=== PATIENT | female | born 1960 | race Caucasian/White ===

== ENCOUNTER 2021-09-07 13:57 | Emergency (ER) | payer OTHER ==
[2021-09-07] MEDS ORDERED: Ketorolac 60 MG/2 ML SDV IM ONE (14:29)
[2021-09-07] MEDS ORDERED: Ketorolac 60 MG/2 ML SDV ONE (14:37)
== END 2021-09-07 15:38 | disposition home or self-care (01) ==
LOC: LB.ED 13:57
DX: M54.6 Pain in thoracic spine (principal); I10 Essential (primary) hypertension; Z88.2 Allergy status to sulfonamides
CPT/HCPCS: 71101; 96372; 99283; J1885

== ENCOUNTER 2021-12-07 11:10 | Emergency (ER) | payer OTHER ==
[2021-12-07] MEDS ORDERED: Levothyroxine 25 MCG Tab ONE (13:30)
== END 2021-12-07 13:35 | disposition home or self-care (01) ==
LOC: LB.ED 11:10
DX: F03.90 Unspecified dementia, unspecified severity, without behavioral disturbance, psychotic disturbance, mood disturbance, and anxiety (principal); E03.9 Hypothyroidism, unspecified; R74.8 Abnormal levels of other serum enzymes; D72.819 Decreased white blood cell count, unspecified; Z79.899 Other long term (current) drug therapy
CPT/HCPCS: 36415; 80053; 84443; 85025; 99284; A9270

== ENCOUNTER 2022-01-04 23:50 | Emergency (ER) | payer OTHER | END 2022-01-05 02:11 | disposition home or self-care (01) | LOC: LB.ED 23:50 | DX: R41.0 Disorientation, unspecified (principal); T50.905A Adverse effect of unspecified drugs, medicaments and biological substances, initial encounter; E78.00 Pure hypercholesterolemia, unspecified; I10 Essential (primary) hypertension; Z88.2 Allergy status to sulfonamides; Z79.899 Other long term (current) drug therapy | CPT/HCPCS: 36415; 70450; 71250; 72125; 74176; 80048; 80307; 81001; 82947; 83605; 85025; 93005; 99283; 99285-25; A0425; A0429 ==

== ENCOUNTER 2022-02-18 22:23 | Emergency (ER) | payer OTHER ==
[2022-02-18] MEDS ORDERED: traMADol 50 MG Tab ONE (23:30)
[2022-02-18] MEDS: Ketorolac 60 MG/2 ML SDV IM ONE (23:40)
== END 2022-02-18 23:52 | disposition home or self-care (01) ==
LOC: LB.ED 22:23
DX: M79.10 Myalgia, unspecified site (principal); I10 Essential (primary) hypertension; Z90.49 Acquired absence of other specified parts of digestive tract; Z90.710 Acquired absence of both cervix and uterus
CPT/HCPCS: 96372; 99283; A9270; J1885; 99282

== ENCOUNTER 2022-03-22 08:15 | Emergency (ER) | payer OTHER ==
[2022-03-22] MEDS: Sodium Chloride 0.9% 10 ML Syringe FLUSH PRN (09:08)
[2022-03-22] MEDS: Morphine 2 MG/ML SYRINGE IVPUSH ONE (09:08)
[2022-03-22] MEDS ORDERED: Morphine 2 MG/ML SYRINGE ONE (09:17)
[2022-03-22 09:31] LABS: ESTIMATED GFR 84 mL/min (>60)
[2022-03-22] MEDS: Gabapentin 300 MG Cap PO ONE (10:45)
[2022-03-22] MEDS: Orphenadrine 60 MG/2 ML Inj IM ONE (10:45)
[2022-03-22] MEDS: Ketamine 200 MG/20 ML MDV ONE (10:55)
[2022-03-22] MEDS: Lidocaine 5% 700 MG Patch TRDERM ONE (11:50)
[2022-03-22] MEDS ORDERED: Acetaminophen/oxyCODONE 325-5 MG Tab ONE (12:00)
[2022-03-22] MEDS ORDERED: Cyclobenzaprine 10 MG Tab ONE (12:00)
== END 2022-03-22 12:25 | disposition home or self-care (01) ==
LOC: LB.ED 08:15
DX: M54.50 Low back pain, unspecified (principal); I10 Essential (primary) hypertension; E66.9 Obesity, unspecified; Z68.30 Body mass index [BMI] 30.0-30.9, adult; Z88.2 Allergy status to sulfonamides; Z79.899 Other long term (current) drug therapy; Z90.49 Acquired absence of other specified parts of digestive tract
CPT/HCPCS: 36415; 73700; 80048; 96372; 96374; 99282; 99284; A0425; A0429; A9270; J2270; J2360; J3490

== ENCOUNTER 2023-12-31 18:41 | Emergency (ER) | payer OTHER ==
[2023-12-31] MEDS ORDERED: Naloxone 2 MG/2 ML Syringe IVPUSH PRN (19:26)
[2023-12-31] MEDS: Orphenadrine 60 MG/2 ML Inj IV ONE (19:30)
[2023-12-31] MEDS: HYDROmorphone 2 MG/ML Syringe IVPUSH ONE (19:34)
[2023-12-31] MEDS ORDERED: Acetaminophen/HYDROcodone 325-5 MG Tab ONE (20:00)
[2023-12-31] MEDS ORDERED: Methocarbamol 500 MG Tab ONE (20:00)
== END 2023-12-31 20:25 | disposition home or self-care (01) ==
LOC: LB.ED 18:41
DX: R09.1 Pleurisy (principal); Z79.01 Long term (current) use of anticoagulants; E78.00 Pure hypercholesterolemia, unspecified; I10 Essential (primary) hypertension; E11.9 Type 2 diabetes mellitus without complications; E03.9 Hypothyroidism, unspecified; E66.9 Obesity, unspecified; Z88.2 Allergy status to sulfonamides; Z88.8 Allergy status to other drugs, medicaments and biological substances; Z79.899 Other long term (current) drug therapy; Z90.49 Acquired absence of other specified parts of digestive tract; Z68.44 Body mass index [BMI] 60.0-69.9, adult
CPT/HCPCS: 71045; 96374; 96375; 99283-25; A9270-GY; J1170; J2360

== ENCOUNTER 2024-01-03 10:08 | Inpatient (IN) | payer OTHER ==
[2024-01-03 11:02] LABS: EOSINOPHILS ABSOLUTE AUTO 0.02 K/uL (0.04-0.40); EOSINOPHILS PERCENT AUTO 0.2 % (1.0-5.0); HEMOGLOBIN 11.7 g/dL (11.5-16.5); LYMPHOCYTES PERCENT AUTO 2.9 % (20.0-40.0); MEAN CORPUSCULAR HGB CONC 34.4 g/dL (31.0-35.0); MEAN CORPUSCULAR VOLUME 93 fL (76-96); MEAN PLATELET VOLUME 11.4 fL (6.0-10.0); MONOCYTES ABSOLUTE AUTO 0.79 K/uL (0.20-0.80); MONOCYTES PERCENT AUTO 7.6 % (3.0-10.0); NEUTROPHILS ABSOLUTE AUTO 9.33 K/uL (2.00-7.50); NEUTROPHILS PERCENT AUTO 89.3 % (45.0-70.0); PLATELET COUNT,PLT 53 K/uL (150-500); RED BLOOD CELL COUNT 3.66 M/uL (3.80-5.80); RED CELL DISTRIBUTION WIDTH 15.3 % (11.0-16.0); WHITE BLOOD CELL COUNT,WBC 10.4 K/uL (4.0-11.0)
[2024-01-03] MEDS: Sodium Chloride 0.9% 1,000 ML IV SCH ×2 (11:02→14:50)
[2024-01-03 11:19] LABS: A/G RATIO 0.8 (0.8-2.0); ALBUMIN 2.4 g/dL (3.4-5.0); ANION GAP 15.3 mmol/L (5.0-15.0); BILIRUBIN TOTAL 1.4 mg/dL (0.0-1.0); BUN/CREATININE RATIO 16.9 (6-25); CALCIUM 7.9 mg/dL (8.5-10.1); CARBON DIOXIDE,CO2 21.1 mmol/L (21.0-32.0); CREATININE 2.84 mg/dL (0.55-1.02); EST CRCL DRUG DOSING (CG) 17.21 mL/min; POTASSIUM,K 4.4 mmol/L (3.5-5.1); PROTEIN TOTAL,TP 5.3 g/dL (6.4-8.2)
[2024-01-03] MEDS: HYDROmorphone 2 MG/ML Syringe IVPUSH ONE (11:29)
[2024-01-03 12:00] LABS: INR 1.8 (1.0-3.5)
[2024-01-03 12:02] LABS: PROTHROMBIN TIME 17.9 sec (9.0-11.5)
[2024-01-03] MEDS: HYDROmorphone 2 MG/ML Syringe ONE (12:17)
[2024-01-03] MEDS: HYDROmorphone 2 MG/ML Syringe IVPUSH PRN (12:20)
[2024-01-03] MEDS ORDERED: LORazepam 1 MG Tab PO PRN (12:56)
[2024-01-03] MEDS ORDERED: Pantoprazole 40 MG Tab.CR PO PRN (12:56)
[2024-01-03] MEDS: Lactulose Soln 10 GM/15 ML 15 ML UD Cup PO SCH (16:51)
[2024-01-03] MEDS: Apixaban 5 MG Tab PO SCH (19:59)
[2024-01-03] MEDS: ROPINIROLE 1 MG PO PRN (20:40)
[2024-01-03] MEDS: Carvedilol 6.25 MG Tab PO SCH (20:42)
[2024-01-03] MEDS: Non-Formulary Medication 1 Each (Zinc Sulfate [Zinc] 50 MG Tablet) PO SCH (21:07)
[2024-01-03] MEDS ORDERED: rOPINIRole 1 MG Tab PO PRN (21:13)
[2024-01-04] MEDS: HYDROmorphone 2 MG/ML Syringe IVPUSH PRN (07:35)
[2024-01-04] MEDS: Zinc (Zinc Gluconate) 50 MG Tab PO SCH (07:45)
[2024-01-04] MEDS: Multivitamin Tab PO SCH (07:46)
[2024-01-04] MEDS: Spironolactone 25 MG Tab PO SCH (07:46)
[2024-01-04] MEDS: Citalopram 10 MG Tab PO SCH (07:47)
[2024-01-04] MEDS: Levothyroxine 88 MCG Tab PO SCH (07:54)
[2024-01-04] MEDS: Levothyroxine 88 MCG Tab ONE (08:09)
[2024-01-04 09:19] LABS: HEMATOCRIT 32.9 % (37.0-47.0); HEMOGLOBIN 11.4 g/dL (11.5-16.5); MEAN CORPUSCULAR HEMOGLOBIN 31.9 pg (27.0-32.0); MEAN CORPUSCULAR HGB CONC 34.7 g/dL (31.0-35.0); MEAN PLATELET VOLUME 11.6 fL (6.0-10.0); RED BLOOD CELL COUNT 3.57 M/uL (3.80-5.80); RED CELL DISTRIBUTION WIDTH 15.6 % (11.0-16.0); WHITE BLOOD CELL COUNT,WBC 13.2 K/uL (4.0-11.0)
[2024-01-04 09:34] LABS: A/G RATIO 0.8 (0.8-2.0); ALBUMIN 2.2 g/dL (3.4-5.0); BILIRUBIN TOTAL 1.6 mg/dL (0.0-1.0); BUN/CREATININE RATIO 20.1 (6-25); CALCIUM 7.7 mg/dL (8.5-10.1); CARBON DIOXIDE,CO2 19.5 mmol/L (21.0-32.0); CREATININE 2.64 mg/dL (0.55-1.02); EST CRCL DRUG DOSING (CG) 18.51 mL/min; POTASSIUM,K 4.5 mmol/L (3.5-5.1); PROTEIN TOTAL,TP 4.9 g/dL (6.4-8.2)
[2024-01-04] MEDS: oxyCODONE 5 MG Tab PO ONE ×2 (11:31→15:08)
[2024-01-04] MEDS: Albumin 25% 200 ML IV ONE (12:43)
[2024-01-04] MEDS: Albumin 25% 50 ML IV SCH (12:47)
[2024-01-04] MEDS: Piperacillin/Tazobactam 4.5 GM in Sodium Chloride 0.9% 100 ML IV ONE (14:06)
[2024-01-04] MEDS: cefTRIAXone 2 GM Vial IVPUSH SCH (14:52)
[2024-01-04] MEDS: oxyCODONE 5 MG Tab ONE (15:13)
== END 2024-01-04 16:19 | DRG 682 ==
LOC: LB.ED 10:08 → UNDOADMIN 12:38 → LB.MS 12:38 → UNDODISIN 01-04 16:19
PROVIDERS: ADMIT Surgery; ATTEND Surgery
DX: N17.9 Acute kidney failure, unspecified (principal); J18.9 Pneumonia, unspecified organism; K76.7 Hepatorenal syndrome; D84.9 Immunodeficiency, unspecified; Z68.42 Body mass index [BMI] 45.0-49.9, adult; J90 Pleural effusion, not elsewhere classified; K72.10 Chronic hepatic failure without coma; H91.90 Unspecified hearing loss, unspecified ear; H54.7 Unspecified visual loss; E78.00 Pure hypercholesterolemia, unspecified; K52.9 Noninfective gastroenteritis and colitis, unspecified; I10 Essential (primary) hypertension; M19.90 Unspecified osteoarthritis, unspecified site; M54.9 Dorsalgia, unspecified; G89.29 Other chronic pain; G43.909 Migraine, unspecified, not intractable, without status migrainosus; F41.9 Anxiety disorder, unspecified; F32.A Depression, unspecified; E03.9 Hypothyroidism, unspecified; E66.9 Obesity, unspecified; E86.0 Dehydration; Z88.2 Allergy status to sulfonamides; Z88.8 Allergy status to other drugs, medicaments and biological substances; Z79.01 Long term (current) use of anticoagulants; Z79.899 Other long term (current) drug therapy; Z86.711 Personal history of pulmonary embolism; Z98.84 Bariatric surgery status; Z90.710 Acquired absence of both cervix and uterus; Z87.81 Personal history of (healed) traumatic fracture; Z90.49 Acquired absence of other specified parts of digestive tract
CPT/HCPCS: 36415; 71250; 74176; 80053; 82140; 83605; 84484; 85025; 85027; 85610; 93005; 93010; 96361; 96374; 96376; 99223; 99239; 99285-25; A9270-GY; J0696; J1170; J2543; J3490; J7030; P9047

== ENCOUNTER 2024-02-13 17:32 | Emergency (ER) | payer OTHER ==
[2024-02-13 18:14] LABS: BASOPHILS ABSOLUTE AUTO 0.02 K/uL (0.02-0.10); BASOPHILS PERCENT AUTO 0.7 % (0.0-0.5); EOSINOPHILS ABSOLUTE AUTO 0.13 K/uL (0.04-0.40); EOSINOPHILS PERCENT AUTO 4.5 % (1.0-5.0); HEMATOCRIT 29.3 % (37.0-47.0); HEMOGLOBIN 9.4 g/dL (11.5-16.5); LYMPHOCYTES ABSOLUTE AUTO 0.87 K/uL (1.50-4.00); LYMPHOCYTES PERCENT AUTO 29.8 % (20.0-40.0); MEAN CORPUSCULAR HEMOGLOBIN 32.5 pg (27.0-32.0); MEAN CORPUSCULAR HGB CONC 32.1 g/dL (31.0-35.0); MEAN CORPUSCULAR VOLUME 101 fL (76-96); MEAN PLATELET VOLUME 9.8 fL (6.0-10.0); MONOCYTES ABSOLUTE AUTO 0.45 K/uL (0.20-0.80); MONOCYTES PERCENT AUTO 15.4 % (3.0-10.0); NEUTROPHILS ABSOLUTE AUTO 1.45 K/uL (2.00-7.50); NEUTROPHILS PERCENT AUTO 49.6 % (45.0-70.0); PLATELET COUNT,PLT 110 K/uL (150-500); RED BLOOD CELL COUNT 2.89 M/uL (3.80-5.80); RED CELL DISTRIBUTION WIDTH 16.6 % (11.0-16.0); WHITE BLOOD CELL COUNT,WBC 2.9 K/uL (4.0-11.0)
[2024-02-13 18:31] LABS: A/G RATIO 0.7 (0.8-2.0); ALBUMIN 2.1 g/dL (3.4-5.0); ANION GAP 8.4 mmol/L (5.0-15.0); BILIRUBIN TOTAL 1.9 mg/dL (0.0-1.0); BUN/CREATININE RATIO 7.5 (6-25); CARBON DIOXIDE,CO2 29.4 mmol/L (21.0-32.0); CREATININE 0.93 mg/dL (0.55-1.02); EST CRCL DRUG DOSING (CG) 52.55 mL/min; POTASSIUM,K 3.8 mmol/L (3.5-5.1); PROTEIN TOTAL,TP 5.2 g/dL (6.4-8.2)
[2024-02-13 19:24] LABS: INR 1.5 (1.0-3.5); PTT,PARTIAL THROMBOPLSTIN TIME 39.4 SECONDS (24.4-33.2)
[2024-02-13 19:27] LABS: PROTHROMBIN TIME 15.7 sec (9.0-11.5)
== END 2024-02-13 19:36 | disposition home or self-care (01) ==
LOC: LB.ED 17:32
DX: H11.32 Conjunctival hemorrhage, left eye (principal); K72.10 Chronic hepatic failure without coma; E11.9 Type 2 diabetes mellitus without complications; E03.9 Hypothyroidism, unspecified; E66.9 Obesity, unspecified; I10 Essential (primary) hypertension; Z90.710 Acquired absence of both cervix and uterus; Z79.899 Other long term (current) drug therapy; Z79.01 Long term (current) use of anticoagulants; Z79.84 Long term (current) use of oral hypoglycemic drugs; Z68.41 Body mass index [BMI] 40.0-44.9, adult
CPT/HCPCS: 36415; 80053; 85025; 85610; 85730; 99283; 99284

== ENCOUNTER 2024-03-02 15:36 | Observation (INO) | payer SELFPAY ==
[2024-03-02] MEDS: Sodium Chloride 0.9% 1,000 ML IV ONE ×2 (16:03→17:06)
[2024-03-02 16:21] LABS: BASOPHILS ABSOLUTE AUTO 0.04 K/uL (0.02-0.10); BASOPHILS PERCENT AUTO 0.8 % (0.0-0.5); EOSINOPHILS ABSOLUTE AUTO 0.11 K/uL (0.04-0.40); EOSINOPHILS PERCENT AUTO 2.2 % (1.0-5.0); HEMATOCRIT 35.2 % (37.0-47.0); HEMOGLOBIN 11.8 g/dL (11.5-16.5); LYMPHOCYTES ABSOLUTE AUTO 1.07 K/uL (1.50-4.00); LYMPHOCYTES PERCENT AUTO 21.7 % (20.0-40.0); MEAN CORPUSCULAR HEMOGLOBIN 31.8 pg (27.0-32.0); MEAN CORPUSCULAR HGB CONC 33.5 g/dL (31.0-35.0); MEAN CORPUSCULAR VOLUME 95 fL (76-96); MEAN PLATELET VOLUME 10.2 fL (6.0-10.0); MONOCYTES PERCENT AUTO 18.3 % (3.0-10.0); PLATELET COUNT,PLT 100 K/uL (150-500); RED BLOOD CELL COUNT 3.71 M/uL (3.80-5.80); WHITE BLOOD CELL COUNT,WBC 4.9 K/uL (4.0-11.0)
[2024-03-02] MEDS: Lactulose Soln 10 GM/15 ML 15 ML UD Cup PO ONE (17:11)
[2024-03-02] MEDS ORDERED: Non-Formulary Medication 1 Each (Pantoprazole Sodium [Protonix] 40 MG Tablet.Dr) PO PRN (17:44)
[2024-03-02] MEDS ORDERED: ROPINIROLE 1 MG PO PRN (17:44)
[2024-03-02] MEDS ORDERED: Non-Formulary Medication 1 Each (Lorazepam [Ativan] 1 MG Tablet) PO PRN (17:44)
[2024-03-02] MEDS ORDERED: Non-Formulary Medication 1 Each (Semaglutide [Ozempic] 1 MG/0.75 ML Pen.Injctr) SUBCUT SCH (17:45)
[2024-03-02] MEDS ORDERED: Pantoprazole 40 MG Tab.CR PO PRN (19:31)
[2024-03-02] MEDS ORDERED: LORazepam 1 MG Tab PO PRN (19:57)
[2024-03-02] MEDS ORDERED: LACTULOSE 10 GM/15 ML PO SCH (20:00)
[2024-03-02] MEDS ORDERED: Rifaximin 550 MG Tab PO SCH (20:00)
[2024-03-02] MEDS ORDERED: Lactulose Soln 10 GM/15 ML 15 ML UD Cup PO SCH (20:00)
[2024-03-02] MEDS ORDERED: Non-Formulary Medication 1 Each (Rifaximin [Xifaxan] 550 MG Tablet) PO SCH (20:00)
[2024-03-02] MEDS: RIFAXIMIN 550 MG PO SCH (20:37)
[2024-03-02] MEDS: Carvedilol 6.25 MG Tab PO SCH (20:46)
[2024-03-02] MEDS: Citalopram 10 MG Tab PO SCH (20:46)
[2024-03-02] MEDS: LACTULOSE PO SCH (20:48)
[2024-03-02] MEDS: Zinc (Zinc Gluconate) 50 MG Tab PO SCH (20:49)
[2024-03-02] MEDS: Sodium Chloride 0.9% 1,000 ML IV SCH (21:00)
[2024-03-02] MEDS: rOPINIRole 1 MG Tab PO PRN (22:56)
[2024-03-03] MEDS ORDERED: Levothyroxine 88 MCG Tab PO SCH (07:00)
[2024-03-03] MEDS: Levothyroxine 88 MCG Tab **OWN MED PO SCH (07:02)
[2024-03-03] MEDS: SPIRONOLACTONE 100 MG PO SCH (07:02)
[2024-03-03] MEDS: Multivitamin Tab PO SCH (07:02)
[2024-03-03] MEDS: Furosemide 40 MG Tab **OWN MED PO SCH (07:02)
[2024-03-03] MEDS ORDERED: Citalopram 10 MG Tab PO SCH (08:00)
[2024-03-03 08:44] LABS: A/G RATIO 0.5 (0.8-2.0); ALBUMIN 1.6 g/dL (3.4-5.0); ANION GAP 10.6 mmol/L (5.0-15.0); BILIRUBIN TOTAL 1.5 mg/dL (0.0-1.0); CARBON DIOXIDE,CO2 25.7 mmol/L (21.0-32.0); CREATININE 0.86 mg/dL (0.55-1.02); EST CRCL DRUG DOSING (CG) 56.83 mL/min; POTASSIUM,K 4.3 mmol/L (3.5-5.1); PROTEIN TOTAL,TP 4.6 g/dL (6.4-8.2)
[2024-03-03 08:49] LABS: BASOPHILS ABSOLUTE AUTO 0.02 K/uL (0.02-0.10); BASOPHILS PERCENT AUTO 0.6 % (0.0-0.5); EOSINOPHILS ABSOLUTE AUTO 0.12 K/uL (0.04-0.40); EOSINOPHILS PERCENT AUTO 3.9 % (1.0-5.0); HEMATOCRIT 31.5 % (37.0-47.0); HEMOGLOBIN 10.4 g/dL (11.5-16.5); LYMPHOCYTES ABSOLUTE AUTO 1.03 K/uL (1.50-4.00); LYMPHOCYTES PERCENT AUTO 33.1 % (20.0-40.0); MEAN CORPUSCULAR HEMOGLOBIN 32.1 pg (27.0-32.0); MEAN CORPUSCULAR VOLUME 97 fL (76-96); MEAN PLATELET VOLUME 10.2 fL (6.0-10.0); MONOCYTES ABSOLUTE AUTO 0.46 K/uL (0.20-0.80); MONOCYTES PERCENT AUTO 14.8 % (3.0-10.0); NEUTROPHILS ABSOLUTE AUTO 1.48 K/uL (2.00-7.50); NEUTROPHILS PERCENT AUTO 47.6 % (45.0-70.0); RED BLOOD CELL COUNT 3.24 M/uL (3.80-5.80); RED CELL DISTRIBUTION WIDTH 14.1 % (11.0-16.0); WHITE BLOOD CELL COUNT,WBC 3.1 K/uL (4.0-11.0)
[2024-03-03 08:57] LABS: PLATELET COUNT,PLT 84 K/uL (150-500)
[2024-03-03 09:30] LABS: CALCIUM 7.5 mg/dL (8.5-10.1)
== END 2024-03-03 10:21 | disposition home or self-care (01) ==
LOC: LB.ED 15:36 → LB.MS 17:40
PROVIDERS: ADMIT Physician Assistant; ATTEND Physician Assistant
DX: E86.0 Dehydration (principal); R53.1 Weakness; R42 Dizziness and giddiness; R65.10 Systemic inflammatory response syndrome (SIRS) of non-infectious origin without acute organ dysfunction; E72.20 Disorder of urea cycle metabolism, unspecified; E78.00 Pure hypercholesterolemia, unspecified; I10 Essential (primary) hypertension; E11.9 Type 2 diabetes mellitus without complications; E03.9 Hypothyroidism, unspecified; E66.9 Obesity, unspecified; D64.9 Anemia, unspecified; Z88.8 Allergy status to other drugs, medicaments and biological substances; Z88.2 Allergy status to sulfonamides; Z79.899 Other long term (current) drug therapy; Z79.890 Hormone replacement therapy
CPT/HCPCS: 36415; 80053; 82140; 83605; 85025; 96360; 96361; 99222; 99238; 99285-25; A9270-GY; G0378; J7030

== ENCOUNTER 2024-03-26 12:47 | Emergency (ER) | payer MEDICAID, OTHER ==
[2024-03-26 13:17] LABS: BASOPHILS ABSOLUTE AUTO 0.04 K/uL (0.02-0.10); EOSINOPHILS ABSOLUTE AUTO 0.24 K/uL (0.04-0.40); EOSINOPHILS PERCENT AUTO 5.8 % (1.0-5.0); HEMATOCRIT 33.8 % (37.0-47.0); HEMOGLOBIN 11.3 g/dL (11.5-16.5); LYMPHOCYTES ABSOLUTE AUTO 1.31 K/uL (1.50-4.00); LYMPHOCYTES PERCENT AUTO 31.9 % (20.0-40.0); MEAN CORPUSCULAR HGB CONC 33.4 g/dL (31.0-35.0); MEAN CORPUSCULAR VOLUME 93 fL (76-96); MEAN PLATELET VOLUME 9.8 fL (6.0-10.0); MONOCYTES ABSOLUTE AUTO 0.54 K/uL (0.20-0.80); MONOCYTES PERCENT AUTO 13.1 % (3.0-10.0); NEUTROPHILS ABSOLUTE AUTO 1.98 K/uL (2.00-7.50); NEUTROPHILS PERCENT AUTO 48.2 % (45.0-70.0); PLATELET COUNT,PLT 137 K/uL (150-500); RED BLOOD CELL COUNT 3.64 M/uL (3.80-5.80); RED CELL DISTRIBUTION WIDTH 15.2 % (11.0-16.0); WHITE BLOOD CELL COUNT,WBC 4.1 K/uL (4.0-11.0)
[2024-03-26 13:33] LABS: ANION GAP 8.4 mmol/L (5.0-15.0); BUN/CREATININE RATIO 5.4 (6-25); CALCIUM 7.6 mg/dL (8.5-10.1); CARBON DIOXIDE,CO2 25.6 mmol/L (21.0-32.0); CREATININE 0.92 mg/dL (0.55-1.02); EST CRCL DRUG DOSING (CG) 53.12 mL/min
[2024-03-26] MEDS ORDERED: Sodium Chloride 0.9% 10 ML Syringe FLUSH PRN (14:09)
[2024-03-26 14:12] LABS: LACTIC ACID 2.4 mmol/L (0.4-2.0)
[2024-03-26] MEDS: Iopamidol 755 Mg/ML 100 ML Bottle IV SCH (14:56)
[2024-03-26] MEDS: Sodium Chloride 0.9% 50 ML SDV FLUSH ONE (14:56)
[2024-03-26 17:13] LABS: INR 1.3 (1.0-3.5)
[2024-03-26 17:16] LABS: PROTHROMBIN TIME 13.8 sec (9.0-11.5)
[2024-03-26 17:18] LABS: ALBUMIN 1.8 g/dL (3.4-5.0); BILIRUBIN DIRECT 0.6 mg/dL (0.0-0.3); BILIRUBIN INDIRECT 1.4 mg/dL (<= 0.7); PROTEIN TOTAL,TP 5.8 g/dL (6.4-8.2)
[2024-03-26 17:20] LABS: A/G RATIO 0.5 (0.8-2.0)
[2024-03-26] MEDS ORDERED: oxyCODONE 5 MG Tab ONE (18:00)
[2024-03-26] MEDS ORDERED: Ondansetron 4 MG Tab.DIS ONE (18:00)
[2024-03-29] MEDS: oxyCODONE 5 MG Tab ONE (11:07)
== END 2024-03-26 19:00 | disposition home or self-care (01) ==
LOC: LB.ED 12:47
DX: J90 Pleural effusion, not elsewhere classified (principal); I10 Essential (primary) hypertension; E11.9 Type 2 diabetes mellitus without complications; E66.9 Obesity, unspecified; E03.9 Hypothyroidism, unspecified; Z87.891 Personal history of nicotine dependence; Z90.49 Acquired absence of other specified parts of digestive tract; Z90.710 Acquired absence of both cervix and uterus; Z79.890 Hormone replacement therapy; Z79.899 Other long term (current) drug therapy; Z88.2 Allergy status to sulfonamides; Z88.5 Allergy status to narcotic agent; Z68.41 Body mass index [BMI] 40.0-44.9, adult
CPT/HCPCS: 32555; 36415; 71046; 71275; 80048; 80076; 83605; 85025; 85379; 85610; 87040; 87070; 87205; 99284; 99285; A9270; J3490; Q0162; Q9967

== ENCOUNTER 2024-04-07 11:47 | Emergency (ER) | payer OTHER ==
[2024-04-07 13:00] LABS: BASOPHILS ABSOLUTE AUTO 0.04 K/uL (0.02-0.10); BASOPHILS PERCENT AUTO 1.2 % (0.0-0.5); EOSINOPHILS ABSOLUTE AUTO 0.21 K/uL (0.04-0.40); EOSINOPHILS PERCENT AUTO 6.1 % (1.0-5.0); HEMATOCRIT 34.7 % (37.0-47.0); HEMOGLOBIN 11.8 g/dL (11.5-16.5); LYMPHOCYTES ABSOLUTE AUTO 1.05 K/uL (1.50-4.00); LYMPHOCYTES PERCENT AUTO 30.7 % (20.0-40.0); MEAN CORPUSCULAR HEMOGLOBIN 30.6 pg (27.0-32.0); MEAN CORPUSCULAR VOLUME 90 fL (76-96); MONOCYTES ABSOLUTE AUTO 0.39 K/uL (0.20-0.80); MONOCYTES PERCENT AUTO 11.4 % (3.0-10.0); NEUTROPHILS ABSOLUTE AUTO 1.73 K/uL (2.00-7.50); NEUTROPHILS PERCENT AUTO 50.6 % (45.0-70.0); PLATELET COUNT,PLT 126 K/uL (150-500); RED BLOOD CELL COUNT 3.85 M/uL (3.80-5.80); RED CELL DISTRIBUTION WIDTH 15.4 % (11.0-16.0); WHITE BLOOD CELL COUNT,WBC 3.4 K/uL (4.0-11.0)
[2024-04-07 13:22] LABS: A/G RATIO 0.5 (0.8-2.0); ALBUMIN 1.9 g/dL (3.4-5.0); BILIRUBIN TOTAL 1.8 mg/dL (0.0-1.0); BUN/CREATININE RATIO 5.9 (6-25); CALCIUM 8.1 mg/dL (8.5-10.1); CARBON DIOXIDE,CO2 23.8 mmol/L (21.0-32.0); CREATININE 1.01 mg/dL (0.55-1.02); EST CRCL DRUG DOSING (CG) 48.39 mL/min; POTASSIUM,K 3.8 mmol/L (3.5-5.1); PROTEIN TOTAL,TP 5.6 g/dL (6.4-8.2)
[2024-04-07 13:39] LABS: INFLUENZA A NAA NEGATIVE (NEGATIVE); INFLUENZA B NAA NEGATIVE (NEGATIVE); RESPIRATORY SYNCYTIAL VIR NAA NEGATIVE (NEGATIVE)
[2024-04-07 13:42] LABS: CORONAVIRUS COVID-19 NAA NEGATIVE (NEGATIVE)
[2024-04-07] MEDS: Lactated Ringers 1,000 ML IV SCH (14:16)
[2024-04-07] MEDS: Sodium Chloride 0.9% 50 ML SDV FLUSH ONE (14:44)
[2024-04-07] MEDS: Iopamidol 755 Mg/ML 100 ML Bottle IV SCH (14:44)
[2024-04-07] MEDS ORDERED: Ondansetron 4 MG Tab.DIS ONE (16:00)
[2024-04-07 16:12] LABS: APPEARANCE,URINE CLEAR (CLEAR); BILIRUBIN,URINE NEGATIVE (NEGATIVE); COLOR,URINE YELLOW; GLUCOSE,URINE NEGATIVE (NEGATIVE); KETONES,URINE NEGATIVE (NEGATIVE); LEUKOCYTE ESTERASE,URINE NEGATIVE (NEGATIVE); NITRITE,URINE NEGATIVE (NEGATIVE); OCCULT BLOOD,URINE NEGATIVE (NEGATIVE); PROTEIN,URINE NEGATIVE (NEGATIVE); UROBILINOGEN,URINE 0.2 E.U./dL (0.2-1.0)
[2024-04-07] MEDS: Morphine 4 MG/ML VIAL IVPUSH ONE (16:19)
[2024-04-07] MEDS: Ondansetron 4 MG/2 ML SDV IVPUSH ONE (16:19)
[2024-04-07] MEDS: Ondansetron 4 MG/2 ML SDV ONE (16:31)
[2024-04-07] MEDS: Morphine 4 MG/ML VIAL ONE (16:31)
== END 2024-04-07 18:45 | disposition home or self-care (01) ==
LOC: LB.ED 11:47
DX: J90 Pleural effusion, not elsewhere classified (principal); K72.10 Chronic hepatic failure without coma; I12.9 Hypertensive chronic kidney disease with stage 1 through stage 4 chronic kidney disease, or unspecified chronic kidney disease; N18.9 Chronic kidney disease, unspecified; E78.00 Pure hypercholesterolemia, unspecified; E11.22 Type 2 diabetes mellitus with diabetic chronic kidney disease; E03.9 Hypothyroidism, unspecified; Z90.49 Acquired absence of other specified parts of digestive tract; Z88.8 Allergy status to other drugs, medicaments and biological substances; Z88.2 Allergy status to sulfonamides; Z79.85 Long-term (current) use of injectable non-insulin antidiabetic drugs; Z79.890 Hormone replacement therapy
CPT/HCPCS: 0241U; 32555; 36415; 71045; 71275; 80053; 81003; 83605; 85025; 85379; 87070; 87205; 96361; 96374; 96375; 99284; 99285-25; J2270; J2405; J3490; J7120; Q0162; Q9967

== ENCOUNTER 2024-04-16 13:14 | Emergency (ER) | payer OTHER ==
[2024-04-16 14:03] LABS: HEMATOCRIT 32.7 % (37.0-47.0); HEMOGLOBIN 11.2 g/dL (11.5-16.5); MEAN CORPUSCULAR HEMOGLOBIN 30.3 pg (27.0-32.0); MEAN CORPUSCULAR HGB CONC 34.3 g/dL (31.0-35.0); MEAN PLATELET VOLUME 10.2 fL (6.0-10.0); RED BLOOD CELL COUNT 3.7 M/uL (3.80-5.80); RED CELL DISTRIBUTION WIDTH 15.8 % (11.0-16.0); WHITE BLOOD CELL COUNT,WBC 3.9 K/uL (4.0-11.0)
[2024-04-16 14:19] LABS: INR 1.4 (1.0-3.5)
[2024-04-16] MEDS: Albuterol/Ipratropium 3.0-0.5 MG/3 ML Neb Soln NEB STA (14:21)
[2024-04-16 14:22] LABS: PROTHROMBIN TIME 14.4 sec (9.0-11.5)
[2024-04-16 14:26] LABS: A/G RATIO 0.5 (0.8-2.0); ALBUMIN 1.9 g/dL (3.4-5.0); ANION GAP 10.6 mmol/L (5.0-15.0); BILIRUBIN TOTAL 2.3 mg/dL (0.0-1.0); BUN/CREATININE RATIO 8.7 (6-25); CARBON DIOXIDE,CO2 26.7 mmol/L (21.0-32.0); CREATININE 1.04 mg/dL (0.55-1.02); EST CRCL DRUG DOSING (CG) 46.99 mL/min; MAGNESIUM 1.7 mg/dL (1.8-2.4); PHOSPHORUS 3.1 mg/dL (2.5-4.9); POTASSIUM,K 3.3 mmol/L (3.5-5.1); PROTEIN TOTAL,TP 5.5 g/dL (6.4-8.2)
[2024-04-16] MEDS: Lactulose Soln 10 GM/15 ML 15 ML UD Cup PO ONE (15:00)
[2024-04-16 15:17] LABS: APPEARANCE,URINE CLEAR (CLEAR); BILIRUBIN,URINE NEGATIVE (NEGATIVE); COLOR,URINE YELLOW; GLUCOSE,URINE NEGATIVE (NEGATIVE); KETONES,URINE TRACE mg/dL (NEGATIVE); LEUKOCYTE ESTERASE,URINE NEGATIVE (NEGATIVE); NITRITE,URINE NEGATIVE (NEGATIVE); OCCULT BLOOD,URINE NEGATIVE (NEGATIVE); PH,URINE 6.5 (5.0-8.0); PROTEIN,URINE 30 mg/dL (NEGATIVE); UROBILINOGEN,URINE 0.2 E.U./dL (0.2-1.0)
[2024-04-16 15:18] LABS: EPITHELIAL CELLS,URINE OCCASIONAL /HPF; RBC,URINE NOT SEEN /HPF; WBC,URINE NOT SEEN /HPF
[2024-04-16] MEDS: Ketorolac 30 MG/ML SDV IM ONE (15:23)
[2024-04-16] MEDS: Ketorolac 30 MG/ML SDV ONE (15:48)
== END 2024-04-16 15:50 | disposition home or self-care (01) ==
LOC: LB.ED 13:14
DX: K72.10 Chronic hepatic failure without coma (principal); E72.20 Disorder of urea cycle metabolism, unspecified; I10 Essential (primary) hypertension; E78.00 Pure hypercholesterolemia, unspecified; E11.9 Type 2 diabetes mellitus without complications; E03.9 Hypothyroidism, unspecified; E66.9 Obesity, unspecified; Z68.38 Body mass index [BMI] 38.0-38.9, adult; Z90.49 Acquired absence of other specified parts of digestive tract; Z79.899 Other long term (current) drug therapy; Z88.2 Allergy status to sulfonamides; Z88.5 Allergy status to narcotic agent
CPT/HCPCS: 36415; 71046; 80053; 81001; 82140; 83735; 83880; 84100; 85027; 85610; 94640; 96372; 99284; 99285; A9270-GY; J1885; J7620

== ENCOUNTER 2024-04-17 07:02 | Observation (INO) | payer OTHER ==
[2024-04-17] MEDS ORDERED: Sodium Chloride 0.9% 10 ML Syringe FLUSH PRN (07:04)
[2024-04-17] MEDS: Dextrose 5% in Water 1,000 ML IV SCH (07:09)
[2024-04-17 07:39] LABS: ANION GAP 12.1 mmol/L (5.0-15.0); BLOOD UREA NITROGEN,BUN 12 mg/dL (8-26); BUN/CREATININE RATIO 11.5 (6-25); CALCIUM 8.3 mg/dL (8.5-10.1); CARBON DIOXIDE,CO2 24.6 mmol/L (21.0-32.0); CHLORIDE,CL 108 mmol/L (98-107); CREATININE 1.04 mg/dL (0.55-1.02); ESTIMATED GFR 61 mL/min (>60); GLUCOSE RANDOM 77 mg/dL (74-100); POTASSIUM,K 3.7 mmol/L (3.5-5.1); SODIUM,NA 141 mmol/L (136-145)
[2024-04-17] MEDS: Sodium Chloride 0.9% 1,000 ML IV SCH (08:41)
[2024-04-17] MEDS ORDERED: LORazepam 1 MG Tab PO PRN ×2 (09:19→09:31)
[2024-04-17] MEDS ORDERED: Pantoprazole 40 MG Tab.CR PO PRN (09:19)
[2024-04-17] MEDS ORDERED: rOPINIRole 1 MG Tab PO PRN (09:19)
[2024-04-17] MEDS: Albumin 25% 12.5 GM/50 ML BAG IV SCH (13:39)
[2024-04-17] MEDS: Carvedilol 3.125 MG Tab PO ONE (14:05)
[2024-04-17] MEDS: Furosemide 40 MG Tab PO ONE (14:06)
[2024-04-17] MEDS: Spironolactone 25 MG Tab PO ONE (14:06)
[2024-04-17] MEDS: Zinc (Zinc Gluconate) 50 MG Tab PO ONE (14:06)
[2024-04-17] MEDS: Rifaximin 550 MG Tab PO ONE (14:07)
[2024-04-17] MEDS: Albumin 25% 200 ML IV ONE (19:23)
[2024-04-17] MEDS: Carvedilol 3.125 MG Tab PO SCH (20:00)
[2024-04-17] MEDS ORDERED: Non-Formulary Medication 1 Each (Zinc Sulfate [Zinc] 50 MG Tablet) PO SCH (20:00)
[2024-04-17] MEDS: Zinc (Zinc Gluconate) 50 MG Tab PO SCH (20:00)
[2024-04-17] MEDS: Rifaximin 550 MG Tab PO SCH (20:01)
[2024-04-18 07:02] LABS: HEMATOCRIT 27.5 % (37.0-47.0); HEMOGLOBIN 9.4 g/dL (11.5-16.5); MEAN CORPUSCULAR HEMOGLOBIN 30.1 pg (27.0-32.0); MEAN CORPUSCULAR HGB CONC 34.2 g/dL (31.0-35.0); MEAN PLATELET VOLUME 10.1 fL (6.0-10.0); RED BLOOD CELL COUNT 3.12 M/uL (3.80-5.80); RED CELL DISTRIBUTION WIDTH 15.4 % (11.0-16.0); WHITE BLOOD CELL COUNT,WBC 3.5 K/uL (4.0-11.0)
[2024-04-18 07:19] LABS: A/G RATIO 0.7 (0.8-2.0); ALANINE AMINOTRANSFERASE,ALT 34 U/L (12-78); ALKALINE PHOSPHATASE 101 U/L (46-116); ASPARTATE AMNIOTRANSFERASE,AST 49 U/L (15-37); BILIRUBIN TOTAL 2.2 mg/dL (0.0-1.0); BLOOD UREA NITROGEN,BUN 10 mg/dL (8-26); BUN/CREATININE RATIO 10.3 (6-25); CALCIUM 7.8 mg/dL (8.5-10.1); CARBON DIOXIDE,CO2 23.5 mmol/L (21.0-32.0); CHLORIDE,CL 109 mmol/L (98-107); CREATININE 0.97 mg/dL (0.55-1.02); ESTIMATED GFR 66 mL/min (>60); GLUCOSE RANDOM 126 mg/dL (74-100); MAGNESIUM 1.7 mg/dL (1.8-2.4); POTASSIUM,K 3.5 mmol/L (3.5-5.1); PROTEIN TOTAL,TP 4.7 g/dL (6.4-8.2); SODIUM,NA 142 mmol/L (136-145)
[2024-04-18] MEDS: Levothyroxine 88 MCG Tab PO SCH (07:36)
[2024-04-18] MEDS: Levothyroxine 25 MCG Tab PO ONE (10:00)
[2024-04-18] MEDS: Lactulose Soln 10 GM/15 ML 15 ML UD Cup PO SCH ×2 (11:24→20:19)
[2024-04-18] MEDS: Furosemide 40 MG Tab PO SCH (12:27)
[2024-04-18] MEDS: Spironolactone 100 MG Tab PO SCH (12:27)
[2024-04-18] MEDS ORDERED: Levothyroxine 88 MCG Tab PO ONE (13:51)
[2024-04-18] MEDS: Magnesium Oxide 400 MG Tab PO SCH (14:18)
[2024-04-18] MEDS: Cyclobenzaprine 10 MG Tab PO ONE (20:19)
[2024-04-19] MEDS ORDERED: Lactulose Soln 10 GM/15 ML 15 ML UD Cup PO SCH (08:00)
[2024-04-19] MEDS: Spironolactone 100 MG Tab PO SCH (09:24)
[2024-04-19] MEDS: Levothyroxine 25 MCG Tab PO ONE (10:49)
== END 2024-04-19 12:36 | disposition home or self-care (01) ==
LOC: LB.ED 07:02 → LB.MS 09:18 → UNDOADMOB 09:20 → LB.MS 09:20
PROVIDERS: ADMIT Surgery; ATTEND Surgery
DX: E11.649 Type 2 diabetes mellitus with hypoglycemia without coma (principal); E11.22 Type 2 diabetes mellitus with diabetic chronic kidney disease; I12.0 Hypertensive chronic kidney disease with stage 5 chronic kidney disease or end stage renal disease; N18.6 End stage renal disease; E83.42 Hypomagnesemia; E03.9 Hypothyroidism, unspecified; Z79.890 Hormone replacement therapy; Z79.899 Other long term (current) drug therapy
CPT/HCPCS: 36415; 70450; 80048; 80053; 82140; 82947; 83735; 84443; 84484; 85027; 93005; 96360; 96361; 99285; A9270; J7030; J7060; P9047; 96365; 96366; 96376; 99222; 99232; 99239; G0378

== ENCOUNTER 2024-05-03 10:17 | Emergency (ER) | payer OTHER ==
[2024-05-03] MEDS ORDERED: Sodium Chloride 0.9% 10 ML Syringe FLUSH PRN (10:30)
[2024-05-03 10:52] LABS: HEMATOCRIT 31.6 % (37.0-47.0); HEMOGLOBIN 10.7 g/dL (11.5-16.5); MEAN CORPUSCULAR HEMOGLOBIN 30.9 pg (27.0-32.0); MEAN CORPUSCULAR HGB CONC 33.9 g/dL (31.0-35.0); MEAN PLATELET VOLUME 9.7 fL (6.0-10.0); RED BLOOD CELL COUNT 3.46 M/uL (3.80-5.80); RED CELL DISTRIBUTION WIDTH 17.8 % (11.0-16.0)
[2024-05-03 10:55] LABS: WHITE BLOOD CELL COUNT,WBC 2.8 K/uL (4.0-11.0)
[2024-05-03 11:05] LABS: INR 1.4 (1.0-3.5)
[2024-05-03 11:09] LABS: ALBUMIN 2.2 g/dL (3.4-5.0); BILIRUBIN TOTAL 2.8 mg/dL (0.0-1.0); BUN/CREATININE RATIO 6.5 (6-25); CALCIUM 8.2 mg/dL (8.5-10.1); CARBON DIOXIDE,CO2 23.5 mmol/L (21.0-32.0); CREATININE 0.93 mg/dL (0.55-1.02); EST CRCL DRUG DOSING (CG) 52.55 mL/min; MAGNESIUM 1.9 mg/dL (1.8-2.4); POTASSIUM,K 3.5 mmol/L (3.5-5.1); PROTEIN TOTAL,TP 5.6 g/dL (6.4-8.2)
[2024-05-03 11:12] LABS: A/G RATIO 0.7 (0.8-2.0)
[2024-05-03 11:39] LABS: INFLUENZA A NAA NEGATIVE (NEGATIVE); INFLUENZA B NAA NEGATIVE (NEGATIVE); RESPIRATORY SYNCYTIAL VIR NAA NEGATIVE (NEGATIVE)
[2024-05-03 11:40] LABS: CORONAVIRUS COVID-19 NAA NEGATIVE (NEGATIVE)
[2024-05-03 11:41] LABS: TSH ULTRASENSITIVE 12.873 uIU/mL (0.358-3.740)
[2024-05-03] MEDS: Albuterol/Ipratropium 3.0-0.5 MG/3 ML Neb Soln NEB SCH (12:20)
[2024-05-05] MEDS: Albuterol/Ipratropium 3.0-0.5 MG/3 ML Neb Soln ONE (08:26)
== END 2024-05-03 13:25 | disposition home or self-care (01) ==
LOC: LB.ED 10:17
DX: J40 Bronchitis, not specified as acute or chronic (principal); R05.1 Acute cough; I10 Essential (primary) hypertension; E78.00 Pure hypercholesterolemia, unspecified; E66.9 Obesity, unspecified; E11.9 Type 2 diabetes mellitus without complications; E03.9 Hypothyroidism, unspecified; Z88.2 Allergy status to sulfonamides; Z88.8 Allergy status to other drugs, medicaments and biological substances; Z79.890 Hormone replacement therapy; Z79.899 Other long term (current) drug therapy; Z90.49 Acquired absence of other specified parts of digestive tract; Z90.710 Acquired absence of both cervix and uterus; Z68.41 Body mass index [BMI] 40.0-44.9, adult
CPT/HCPCS: 0241U; 36415; 71045; 80053; 82140; 83735; 83880; 84443; 85027; 85610; 94640; 99284; J7620

== ENCOUNTER 2024-05-19 11:04 | Emergency (ER) | payer OTHER ==
[2024-05-19 11:51] LABS: BASOPHILS ABSOLUTE AUTO 0.02 K/uL (0.02-0.10); BASOPHILS PERCENT AUTO 0.7 % (0.0-0.5); EOSINOPHILS ABSOLUTE AUTO 0.11 K/uL (0.04-0.40); HEMATOCRIT 31.3 % (37.0-47.0); HEMOGLOBIN 10.7 g/dL (11.5-16.5); LYMPHOCYTES ABSOLUTE AUTO 0.83 K/uL (1.50-4.00); MEAN CORPUSCULAR HEMOGLOBIN 31.3 pg (27.0-32.0); MEAN CORPUSCULAR HGB CONC 34.2 g/dL (31.0-35.0); MEAN CORPUSCULAR VOLUME 92 fL (76-96); MEAN PLATELET VOLUME 10.3 fL (6.0-10.0); MONOCYTES ABSOLUTE AUTO 0.36 K/uL (0.20-0.80); NEUTROPHILS ABSOLUTE AUTO 1.45 K/uL (2.00-7.50); NEUTROPHILS PERCENT AUTO 52.3 % (45.0-70.0); PLATELET COUNT,PLT 94 K/uL (150-500); RED BLOOD CELL COUNT 3.42 M/uL (3.80-5.80); RED CELL DISTRIBUTION WIDTH 16.3 % (11.0-16.0); WHITE BLOOD CELL COUNT,WBC 2.8 K/uL (4.0-11.0)
[2024-05-19 12:17] LABS: INR 1.5 (1.0-3.5)
[2024-05-19 12:18] LABS: PROTHROMBIN TIME 15.7 sec (9.0-11.5)
[2024-05-19 12:19] LABS: A/G RATIO 0.6 (0.8-2.0); ANION GAP 10.6 mmol/L (5.0-15.0); BILIRUBIN TOTAL 2.6 mg/dL (0.0-1.0); BUN/CREATININE RATIO 4.4 (6-25); CALCIUM 7.9 mg/dL (8.5-10.1); CARBON DIOXIDE,CO2 27.5 mmol/L (21.0-32.0); CREATININE 1.13 mg/dL (0.55-1.02); EST CRCL DRUG DOSING (CG) 43.25 mL/min; POTASSIUM,K 3.1 mmol/L (3.5-5.1); PROTEIN TOTAL,TP 5.2 g/dL (6.4-8.2)
[2024-05-19] MEDS: Albuterol/Ipratropium 3.0-0.5 MG/3 ML Neb Soln NEB PRN (12:47)
[2024-05-19] MEDS: Sodium Chloride 0.9% 1,000 ML IV SCH (12:57)
[2024-05-19] MEDS: Potassium Chloride Riders 10 MEQ in Premix Bag 1 BAG IV ONE (13:43)
[2024-05-19] MEDS: Albuterol/Ipratropium 3.0-0.5 MG/3 ML Neb Soln ONE (13:45)
[2024-05-19] MEDS: Potassium Chloride Riders 50 ML ONE (13:46)
[2024-05-19 14:30] VITALS: BP 130/97; PULSE 82
== END 2024-05-19 15:45 | disposition home or self-care (01) ==
LOC: LB.ED 11:04
DX: J21.9 Acute bronchiolitis, unspecified (principal); E87.6 Hypokalemia; I10 Essential (primary) hypertension; E78.00 Pure hypercholesterolemia, unspecified; E11.9 Type 2 diabetes mellitus without complications; E03.9 Hypothyroidism, unspecified; E66.9 Obesity, unspecified; Z90.710 Acquired absence of both cervix and uterus; Z79.899 Other long term (current) drug therapy; Z88.8 Allergy status to other drugs, medicaments and biological substances; Z88.2 Allergy status to sulfonamides; Z68.41 Body mass index [BMI] 40.0-44.9, adult; Z79.890 Hormone replacement therapy
CPT/HCPCS: 36415; 71045; 80053; 82140; 83735; 83880; 84443; 85025; 85610; 94640; 96361; 96365; 99284; 99285-25; J3480; J7030; J7620

== ENCOUNTER 2024-05-28 12:47 | Emergency (ER) | payer OTHER ==
[2024-05-28] MEDS: Sodium Chloride 0.9% 1,000 ML IV SCH (14:51)
[2024-05-28 19:07] VITALS: BP 130/91; PULSE 81
== END 2024-05-28 18:58 | disposition home or self-care (01) ==
LOC: LB.ED 12:47
DX: E86.0 Dehydration (principal); I10 Essential (primary) hypertension; E78.00 Pure hypercholesterolemia, unspecified; E11.9 Type 2 diabetes mellitus without complications; E03.9 Hypothyroidism, unspecified; Z90.49 Acquired absence of other specified parts of digestive tract; Z90.710 Acquired absence of both cervix and uterus; Z88.2 Allergy status to sulfonamides; Z88.8 Allergy status to other drugs, medicaments and biological substances; Z79.899 Other long term (current) drug therapy
CPT/HCPCS: 96360; 96361; 99283; 99283-25; J7030

== ENCOUNTER 2024-06-09 16:03 | Emergency (ER) | payer OTHER ==
[2024-06-09 16:51] LABS: BASOPHILS ABSOLUTE AUTO 0.04 K/uL (0.02-0.10); BASOPHILS PERCENT AUTO 1.1 % (0.0-0.5); EOSINOPHILS ABSOLUTE AUTO 0.33 K/uL (0.04-0.40); EOSINOPHILS PERCENT AUTO 9.3 % (1.0-5.0); LYMPHOCYTES ABSOLUTE AUTO 1.19 K/uL (1.50-4.00); LYMPHOCYTES PERCENT AUTO 33.7 % (20.0-40.0); MEAN CORPUSCULAR HEMOGLOBIN 31.1 pg (27.0-32.0); MEAN CORPUSCULAR HGB CONC 34.4 g/dL (31.0-35.0); MEAN CORPUSCULAR VOLUME 90 fL (76-96); MEAN PLATELET VOLUME 9.7 fL (6.0-10.0); MONOCYTES ABSOLUTE AUTO 0.44 K/uL (0.20-0.80); MONOCYTES PERCENT AUTO 12.5 % (3.0-10.0); NEUTROPHILS ABSOLUTE AUTO 1.53 K/uL (2.00-7.50); NEUTROPHILS PERCENT AUTO 43.4 % (45.0-70.0); PLATELET COUNT,PLT 108 K/uL (150-500); RED BLOOD CELL COUNT 3.54 M/uL (3.80-5.80); RED CELL DISTRIBUTION WIDTH 15.7 % (11.0-16.0); WHITE BLOOD CELL COUNT,WBC 3.5 K/uL (4.0-11.0)
[2024-06-09 17:12] LABS: A/G RATIO 0.5 (0.8-2.0); ALBUMIN 1.9 g/dL (3.4-5.0); ANION GAP 10.6 mmol/L (5.0-15.0); BILIRUBIN TOTAL 2.9 mg/dL (0.0-1.0); BUN/CREATININE RATIO 5.3 (6-25); CALCIUM 8.1 mg/dL (8.5-10.1); CARBON DIOXIDE,CO2 24.8 mmol/L (21.0-32.0); CREATININE 0.94 mg/dL (0.55-1.02); EST CRCL DRUG DOSING (CG) 51.99 mL/min; POTASSIUM,K 3.4 mmol/L (3.5-5.1); PROTEIN TOTAL,TP 5.5 g/dL (6.4-8.2)
[2024-06-09] MEDS ORDERED: Sodium Chloride 0.9% 10 ML Syringe FLUSH PRN (18:35)
[2024-06-09] MEDS: Sodium Chloride 0.9% 1,000 ML IV ONE (19:27)
== END 2024-06-09 21:34 | disposition home or self-care (01) ==
LOC: LB.ED 16:03
DX: E86.0 Dehydration (principal); E11.9 Type 2 diabetes mellitus without complications; E03.9 Hypothyroidism, unspecified; E66.9 Obesity, unspecified; Z79.899 Other long term (current) drug therapy; Z88.2 Allergy status to sulfonamides; Z88.8 Allergy status to other drugs, medicaments and biological substances
CPT/HCPCS: 36415; 80053; 83605; 85025; 96360; 96361; 99284; 99284-25; J7030

== ENCOUNTER 2024-06-22 15:46 | Emergency (ER) | payer MEDICAID ==
[2024-06-22] MEDS ORDERED: Sodium Chloride 0.9% 10 ML Syringe FLUSH PRN (16:16)
[2024-06-22 16:26] LABS: HEMATOCRIT 32.3 % (37.0-47.0); HEMOGLOBIN 10.7 g/dL (11.5-16.5); MEAN CORPUSCULAR HEMOGLOBIN 30.7 pg (27.0-32.0); MEAN CORPUSCULAR HGB CONC 33.1 g/dL (31.0-35.0); MEAN PLATELET VOLUME 9.9 fL (6.0-10.0); RED BLOOD CELL COUNT 3.49 M/uL (3.80-5.80); RED CELL DISTRIBUTION WIDTH 16.9 % (11.0-16.0); WHITE BLOOD CELL COUNT,WBC 3.6 K/uL (4.0-11.0)
[2024-06-22 16:42] LABS: INR 1.5 (1.0-3.5)
[2024-06-22 16:52] LABS: APPEARANCE,URINE SLIGHTLY CLOUDY (CLEAR); COLOR,URINE OTHER
[2024-06-22 16:53] LABS: BILIRUBIN,URINE SMALL (NEGATIVE); GLUCOSE,URINE NEGATIVE (NEGATIVE); KETONES,URINE NEGATIVE (NEGATIVE); LEUKOCYTE ESTERASE,URINE NEGATIVE (NEGATIVE); NITRITE,URINE NEGATIVE (NEGATIVE); OCCULT BLOOD,URINE TRACE-INTACT (NEGATIVE); PROTEIN,URINE TRACE mg/dL (NEGATIVE); UROBILINOGEN,URINE 0.2 E.U./dL (0.2-1.0)
[2024-06-22 16:54] LABS: EPITHELIAL CELLS,URINE OCCASIONAL /HPF; WBC,URINE NOT SEEN /HPF
[2024-06-22 16:55] LABS: A/G RATIO 0.6 (0.8-2.0); ALBUMIN 1.9 g/dL (3.4-5.0); ANION GAP 11.4 mmol/L (5.0-15.0); BILIRUBIN TOTAL 2.5 mg/dL (0.0-1.0); BUN/CREATININE RATIO 4.7 (6-25); CREATININE 0.86 mg/dL (0.55-1.02); EST CRCL DRUG DOSING (CG) 56.83 mL/min; MAGNESIUM 1.8 mg/dL (1.8-2.4); POTASSIUM,K 3.4 mmol/L (3.5-5.1); PROTEIN TOTAL,TP 5.2 g/dL (6.4-8.2)
[2024-06-22 16:56] LABS: PROTHROMBIN TIME 15.1 sec (9.0-11.5)
[2024-06-22] MEDS: Albuterol 0.083% 2.5 MG/3 ML Neb Soln NEB ONE ×2 (16:57→19:28)
[2024-06-22] MEDS: Albuterol 0.083% 2.5 MG/3 ML Neb Soln ONE ×2 (17:01→19:28)
[2024-06-22 17:38] LABS: INFLUENZA A NAA NEGATIVE (NEGATIVE); INFLUENZA B NAA NEGATIVE (NEGATIVE); RESPIRATORY SYNCYTIAL VIR NAA NEGATIVE (NEGATIVE)
[2024-06-22 17:40] LABS: CORONAVIRUS COVID-19 NAA NEGATIVE (NEGATIVE)
[2024-06-22] MEDS: Sodium Chloride 0.9% 1,000 ML IV SCH (17:43)
== END 2024-06-22 19:35 | disposition home or self-care (01) ==
LOC: LB.ED 15:46
DX: J21.9 Acute bronchiolitis, unspecified (principal); E86.0 Dehydration; I10 Essential (primary) hypertension; E11.9 Type 2 diabetes mellitus without complications; E03.9 Hypothyroidism, unspecified; E66.9 Obesity, unspecified; Z90.49 Acquired absence of other specified parts of digestive tract; Z90.710 Acquired absence of both cervix and uterus; Z79.899 Other long term (current) drug therapy; Z79.890 Hormone replacement therapy; Z88.2 Allergy status to sulfonamides; Z88.8 Allergy status to other drugs, medicaments and biological substances; Z68.41 Body mass index [BMI] 40.0-44.9, adult
CPT/HCPCS: 0241U; 36415; 71045; 80053; 81001; 82140; 83605; 83735; 83880; 85027; 85610; 94640; 96360; 96361; 99284; 99285; J7030

== ENCOUNTER 2024-06-29 11:15 | Emergency (ER) | payer MEDICAID ==
[2024-06-29] MEDS ORDERED: Sodium Chloride 0.9% 10 ML Syringe FLUSH PRN (12:00)
[2024-06-29 12:22] LABS: BASOPHILS ABSOLUTE AUTO 0.01 K/uL (0.02-0.10); BASOPHILS PERCENT AUTO 0.2 % (0.0-0.5); EOSINOPHILS ABSOLUTE AUTO 0.31 K/uL (0.04-0.40); EOSINOPHILS PERCENT AUTO 5.7 % (1.0-5.0); HEMATOCRIT 33.6 % (37.0-47.0); HEMOGLOBIN 11.4 g/dL (11.5-16.5); LYMPHOCYTES ABSOLUTE AUTO 1.13 K/uL (1.50-4.00); LYMPHOCYTES PERCENT AUTO 20.7 % (20.0-40.0); MEAN CORPUSCULAR HEMOGLOBIN 31.1 pg (27.0-32.0); MEAN CORPUSCULAR HGB CONC 33.9 g/dL (31.0-35.0); MEAN CORPUSCULAR VOLUME 92 fL (76-96); MEAN PLATELET VOLUME 9.7 fL (6.0-10.0); MONOCYTES ABSOLUTE AUTO 0.96 K/uL (0.20-0.80); MONOCYTES PERCENT AUTO 17.6 % (3.0-10.0); NEUTROPHILS ABSOLUTE AUTO 3.04 K/uL (2.00-7.50); NEUTROPHILS PERCENT AUTO 55.8 % (45.0-70.0); PLATELET COUNT,PLT 112 K/uL (150-500); RED BLOOD CELL COUNT 3.66 M/uL (3.80-5.80); RED CELL DISTRIBUTION WIDTH 17.5 % (11.0-16.0); WHITE BLOOD CELL COUNT,WBC 5.5 K/uL (4.0-11.0)
[2024-06-29 12:46] LABS: A/G RATIO 0.6 (0.8-2.0); ALBUMIN 2.2 g/dL (3.4-5.0); ANION GAP 12.6 mmol/L (5.0-15.0); BILIRUBIN TOTAL 3.3 mg/dL (0.0-1.0); BUN/CREATININE RATIO 9.5 (6-25); CALCIUM 8.1 mg/dL (8.5-10.1); CARBON DIOXIDE,CO2 26.3 mmol/L (21.0-32.0); CREATININE 0.95 mg/dL (0.55-1.02); EST CRCL DRUG DOSING (CG) 51.44 mL/min; MAGNESIUM 1.9 mg/dL (1.8-2.4); PROTEIN TOTAL,TP 5.7 g/dL (6.4-8.2); TROPONIN I HIGH SENSITIVITY 13.1 pg/ml (<=60.4)
[2024-06-29 12:47] LABS: POTASSIUM,K 2.9 mmol/L (3.5-5.1)
[2024-06-29 12:59] LABS: INR 1.5 (1.0-3.5)
[2024-06-29 13:02] LABS: PROTHROMBIN TIME 15.8 sec (9.0-11.5)
[2024-06-29] MEDS: Potassium Chloride Riders 10 MEQ in Premix Bag 1 BAG IV ONE (13:06)
[2024-06-30] MEDS: Potassium Chloride Riders 50 ML ONE (09:48)
== END 2024-06-29 15:57 | disposition home or self-care (01) ==
LOC: LB.ED 11:15
DX: E87.6 Hypokalemia (principal); I10 Essential (primary) hypertension; E11.9 Type 2 diabetes mellitus without complications; E66.9 Obesity, unspecified; E03.9 Hypothyroidism, unspecified; Z90.49 Acquired absence of other specified parts of digestive tract; Z90.710 Acquired absence of both cervix and uterus; Z79.899 Other long term (current) drug therapy; Z79.890 Hormone replacement therapy; Z88.8 Allergy status to other drugs, medicaments and biological substances; Z88.2 Allergy status to sulfonamides
CPT/HCPCS: 36415; 71045; 80053; 83735; 83880; 84132; 84484; 85025; 85610; 93005; 93010; 96365; 99283; 99285-25; J3480

== ENCOUNTER 2024-07-07 21:17 | Emergency (ER) | payer MEDICAID ==
[2024-07-07] MEDS ORDERED: Sodium Chloride 0.9% 10 ML Syringe FLUSH PRN (21:59)
[2024-07-07 22:25] LABS: HEMATOCRIT 33.6 % (37.0-47.0); HEMOGLOBIN 11.4 g/dL (11.5-16.5); MEAN CORPUSCULAR HGB CONC 33.9 g/dL (31.0-35.0); MEAN PLATELET VOLUME 10.4 fL (6.0-10.0); RED BLOOD CELL COUNT 3.68 M/uL (3.80-5.80); RED CELL DISTRIBUTION WIDTH 17.8 % (11.0-16.0); WHITE BLOOD CELL COUNT,WBC 4.2 K/uL (4.0-11.0)
[2024-07-07 22:43] LABS: ALBUMIN 1.8 g/dL (3.4-5.0); ANION GAP 7.7 mmol/L (5.0-15.0); BILIRUBIN TOTAL 2.7 mg/dL (0.0-1.0); BUN/CREATININE RATIO 6.7 (6-25); CALCIUM 7.8 mg/dL (8.5-10.1); CARBON DIOXIDE,CO2 29.9 mmol/L (21.0-32.0); CREATININE 1.04 mg/dL (0.55-1.02); EST CRCL DRUG DOSING (CG) 46.99 mL/min; INR 1.4 (1.0-3.5); MAGNESIUM 1.8 mg/dL (1.8-2.4); POTASSIUM,K 3.6 mmol/L (3.5-5.1); PROTEIN TOTAL,TP 5.1 g/dL (6.4-8.2)
[2024-07-07 22:44] LABS: A/G RATIO 0.6 (0.8-2.0); PROTHROMBIN TIME 14.4 sec (9.0-11.5)
[2024-07-07 22:53] LABS: APPEARANCE,URINE SLIGHTLY CLOUDY (CLEAR); COLOR,URINE OTHER; GLUCOSE,URINE NEGATIVE (NEGATIVE); PROTEIN,URINE 30 mg/dL (NEGATIVE)
[2024-07-07 22:54] LABS: BILIRUBIN,URINE SMALL (NEGATIVE); KETONES,URINE TRACE mg/dL (NEGATIVE); LEUKOCYTE ESTERASE,URINE NEGATIVE (NEGATIVE); NITRITE,URINE NEGATIVE (NEGATIVE); OCCULT BLOOD,URINE TRACE-LYSED (NEGATIVE); RBC,URINE 0-5 /HPF; SQUAMOUS EPITHELIAL CELLS,UR FEW /HPF; WBC,URINE NOT SEEN /HPF
[2024-07-07] MEDS ORDERED: Cyclobenzaprine 10 MG Tab ONE (23:00)
[2024-07-07] MEDS: Furosemide 80 MG Tab PO ONE (23:38)
[2024-07-07] MEDS: Furosemide 40 MG/4 ML VIAL IVPUSH ONE (23:38)
[2024-07-07] MEDS: Furosemide 40 MG/4 ML VIAL ONE (23:38)
[2024-07-08] MEDS: Furosemide 80 MG Tab ONE (00:28)
== END 2024-07-07 23:50 | disposition home or self-care (01) ==
LOC: LB.ED 21:17
DX: J90 Pleural effusion, not elsewhere classified (principal); R60.1 Generalized edema; K72.10 Chronic hepatic failure without coma; I10 Essential (primary) hypertension; E78.00 Pure hypercholesterolemia, unspecified; E66.9 Obesity, unspecified; E03.9 Hypothyroidism, unspecified; E11.9 Type 2 diabetes mellitus without complications; Z68.41 Body mass index [BMI] 40.0-44.9, adult; Z88.2 Allergy status to sulfonamides; Z88.8 Allergy status to other drugs, medicaments and biological substances; Z79.890 Hormone replacement therapy; Z79.899 Other long term (current) drug therapy; Z90.49 Acquired absence of other specified parts of digestive tract; Z90.710 Acquired absence of both cervix and uterus
CPT/HCPCS: 36415; 71045; 74176; 80053; 81001; 82140; 83605; 83735; 85027; 85610; 99284; 99285; A9270

== ENCOUNTER 2024-07-31 12:07 | Emergency (ER) | payer MEDICAID ==
[2024-07-31] MEDS ORDERED: Cyclobenzaprine 10 MG Tab ONE (13:00)
[2024-07-31] MEDS ORDERED: Azithromycin 250 MG Tab ONE (13:00)
[2024-07-31 13:30] LABS: HEMATOCRIT 30.6 % (37.0-47.0); HEMOGLOBIN 10.3 g/dL (11.5-16.5); MEAN CORPUSCULAR HEMOGLOBIN 31.7 pg (27.0-32.0); MEAN CORPUSCULAR HGB CONC 33.7 g/dL (31.0-35.0); MEAN PLATELET VOLUME 10.1 fL (6.0-10.0); RED BLOOD CELL COUNT 3.25 M/uL (3.80-5.80); RED CELL DISTRIBUTION WIDTH 16.4 % (11.0-16.0); WHITE BLOOD CELL COUNT,WBC 3.1 K/uL (4.0-11.0)
[2024-07-31 13:35] LABS: APPEARANCE,URINE SLIGHTLY CLOUDY (CLEAR); BILIRUBIN,URINE SMALL (NEGATIVE); COLOR,URINE OTHER; GLUCOSE,URINE NEGATIVE (NEGATIVE); KETONES,URINE NEGATIVE (NEGATIVE); LEUKOCYTE ESTERASE,URINE NEGATIVE (NEGATIVE); NITRITE,URINE NEGATIVE (NEGATIVE); OCCULT BLOOD,URINE NEGATIVE (NEGATIVE); PROTEIN,URINE 30 mg/dL (NEGATIVE)
[2024-07-31 13:36] LABS: RBC,URINE 0-5 /HPF; SQUAMOUS EPITHELIAL CELLS,UR OCCASIONAL /HPF; WBC,URINE NOT SEEN /HPF
[2024-07-31 13:39] LABS: A/G RATIO 0.7 (0.8-2.0); ANION GAP 7.7 mmol/L (5.0-15.0); BILIRUBIN TOTAL 3.3 mg/dL (0.0-1.0); BUN/CREATININE RATIO 5.6 (6-25); CALCIUM 7.7 mg/dL (8.5-10.1); CARBON DIOXIDE,CO2 27.1 mmol/L (21.0-32.0); CREATININE 0.9 mg/dL (0.55-1.02); EST CRCL DRUG DOSING (CG) 54.3 mL/min; MAGNESIUM 1.7 mg/dL (1.8-2.4); PHOSPHORUS 3.1 mg/dL (2.5-4.9); POTASSIUM,K 3.8 mmol/L (3.5-5.1)
[2024-07-31 13:42] LABS: INR 1.6 (1.0-3.5)
[2024-07-31] MEDS: Albuterol 0.083% 2.5 MG/3 ML Neb Soln NEB ONE (14:09)
[2024-07-31] MEDS: Budesonide 0.5 MG/2 ML Neb Susp NEB ONE (14:29)
[2024-08-02] MEDS: Albuterol 0.083% 2.5 MG/3 ML Neb Soln ONE (13:58)
[2024-08-02] MEDS: Budesonide 0.5 MG/2 ML Neb Susp ONE (13:58)
== END 2024-07-31 14:46 | disposition home or self-care (01) ==
LOC: LB.ED 12:07
DX: J21.9 Acute bronchiolitis, unspecified (principal); K72.10 Chronic hepatic failure without coma; R79.89 Other specified abnormal findings of blood chemistry; I10 Essential (primary) hypertension; E11.9 Type 2 diabetes mellitus without complications; E03.9 Hypothyroidism, unspecified; E66.9 Obesity, unspecified; Z90.49 Acquired absence of other specified parts of digestive tract; Z90.710 Acquired absence of both cervix and uterus; Z87.891 Personal history of nicotine dependence; Z79.899 Other long term (current) drug therapy; Z79.890 Hormone replacement therapy; Z79.85 Long-term (current) use of injectable non-insulin antidiabetic drugs; Z88.2 Allergy status to sulfonamides; Z88.8 Allergy status to other drugs, medicaments and biological substances; Z68.38 Body mass index [BMI] 38.0-38.9, adult
CPT/HCPCS: 36415; 71046; 80053; 81001; 82140; 83735; 84100; 85027; 85610; 94640; 99284; A9270-GY

== ENCOUNTER 2024-08-18 18:58 | Emergency (ER) | payer OTHER ==
[2024-08-18 20:13] LABS: BASOPHILS ABSOLUTE AUTO 0.04 K/uL (0.02-0.10); BASOPHILS PERCENT AUTO 1.2 % (0.0-0.5); EOSINOPHILS ABSOLUTE AUTO 0.28 K/uL (0.04-0.40); EOSINOPHILS PERCENT AUTO 8.2 % (1.0-5.0); HEMATOCRIT 33.2 % (37.0-47.0); HEMOGLOBIN 11.3 g/dL (11.5-16.5); LYMPHOCYTES PERCENT AUTO 29.3 % (20.0-40.0); MEAN CORPUSCULAR HEMOGLOBIN 31.7 pg (27.0-32.0); MEAN CORPUSCULAR VOLUME 93 fL (76-96); MEAN PLATELET VOLUME 9.8 fL (6.0-10.0); MONOCYTES ABSOLUTE AUTO 0.41 K/uL (0.20-0.80); NEUTROPHILS ABSOLUTE AUTO 1.68 K/uL (2.00-7.50); NEUTROPHILS PERCENT AUTO 49.3 % (45.0-70.0); PLATELET COUNT,PLT 114 K/uL (150-500); RED BLOOD CELL COUNT 3.56 M/uL (3.80-5.80); RED CELL DISTRIBUTION WIDTH 15.5 % (11.0-16.0); WHITE BLOOD CELL COUNT,WBC 3.4 K/uL (4.0-11.0)
[2024-08-18 20:29] LABS: INR 1.5 (1.0-3.5)
[2024-08-18 20:34] LABS: A/G RATIO 0.6 (0.8-2.0); ANION GAP 10.2 mmol/L (5.0-15.0); CALCIUM 7.9 mg/dL (8.5-10.1); CARBON DIOXIDE,CO2 25.8 mmol/L (21.0-32.0); CREATININE 1.01 mg/dL (0.55-1.02); EST CRCL DRUG DOSING (CG) 47.77 mL/min; PROTEIN TOTAL,TP 5.6 g/dL (6.4-8.2); PROTHROMBIN TIME 15.5 sec (9.0-11.5)
[2024-08-18 20:51] LABS: CORONAVIRUS COVID-19 NAA NEGATIVE (NEGATIVE); INFLUENZA A NAA NEGATIVE (NEGATIVE); INFLUENZA B NAA NEGATIVE (NEGATIVE); RESPIRATORY SYNCYTIAL VIR NAA NEGATIVE (NEGATIVE)
[2024-08-18] MEDS: Potassium Chloride 20 MEQ Tab.ER PO ONE (21:36)
== END 2024-08-18 22:03 | disposition home or self-care (01) ==
LOC: LB.ED 18:58
DX: K72.10 Chronic hepatic failure without coma (principal); I10 Essential (primary) hypertension; E78.00 Pure hypercholesterolemia, unspecified; E66.9 Obesity, unspecified; E11.9 Type 2 diabetes mellitus without complications; E03.9 Hypothyroidism, unspecified; Z88.2 Allergy status to sulfonamides; Z88.8 Allergy status to other drugs, medicaments and biological substances; Z79.890 Hormone replacement therapy; Z79.899 Other long term (current) drug therapy; Z90.49 Acquired absence of other specified parts of digestive tract; Z90.710 Acquired absence of both cervix and uterus; Z68.39 Body mass index [BMI] 39.0-39.9, adult
CPT/HCPCS: 0241U; 36415; 71045; 80053; 82140; 83690; 84484; 85025; 85610; 93005; 99284; 99285; A9270-GY

== ENCOUNTER 2024-08-25 14:09 | Emergency (ER) | payer OTHER ==
[2024-08-25 15:33] LABS: BASOPHILS ABSOLUTE AUTO 0.04 K/uL (0.02-0.10); BASOPHILS PERCENT AUTO 1.1 % (0.0-0.5); EOSINOPHILS ABSOLUTE AUTO 0.21 K/uL (0.04-0.40); EOSINOPHILS PERCENT AUTO 5.7 % (1.0-5.0); HEMATOCRIT 34.2 % (37.0-47.0); LYMPHOCYTES ABSOLUTE AUTO 1.34 K/uL (1.50-4.00); LYMPHOCYTES PERCENT AUTO 36.4 % (20.0-40.0); MEAN CORPUSCULAR HEMOGLOBIN 32.1 pg (27.0-32.0); MEAN CORPUSCULAR HGB CONC 35.1 g/dL (31.0-35.0); MEAN CORPUSCULAR VOLUME 91 fL (76-96); MEAN PLATELET VOLUME 9.8 fL (6.0-10.0); MONOCYTES ABSOLUTE AUTO 0.51 K/uL (0.20-0.80); MONOCYTES PERCENT AUTO 13.9 % (3.0-10.0); NEUTROPHILS ABSOLUTE AUTO 1.58 K/uL (2.00-7.50); NEUTROPHILS PERCENT AUTO 42.9 % (45.0-70.0); PLATELET COUNT,PLT 124 K/uL (150-500); RED BLOOD CELL COUNT 3.74 M/uL (3.80-5.80); RED CELL DISTRIBUTION WIDTH 15.1 % (11.0-16.0); WHITE BLOOD CELL COUNT,WBC 3.7 K/uL (4.0-11.0)
[2024-08-25 15:46] LABS: ANION GAP 10.1 mmol/L (5.0-15.0); BLOOD UREA NITROGEN,BUN 6 mg/dL (8-26); BUN/CREATININE RATIO 5.6 (6-25); CALCIUM 7.8 mg/dL (8.5-10.1); CARBON DIOXIDE,CO2 28.4 mmol/L (21.0-32.0); CHLORIDE,CL 105 mmol/L (98-107); CREATININE 1.08 mg/dL (0.55-1.02); ESTIMATED GFR 58 mL/min (>60); GLUCOSE RANDOM 162 mg/dL (74-100); POTASSIUM,K 3.5 mmol/L (3.5-5.1); SODIUM,NA 140 mmol/L (136-145)
[2024-08-25 15:56] LABS: CORONAVIRUS COVID-19 NAA NEGATIVE (NEGATIVE); INFLUENZA A NAA NEGATIVE (NEGATIVE); INFLUENZA B NAA NEGATIVE (NEGATIVE)
== END 2024-08-25 16:10 | disposition home or self-care (01) ==
LOC: LB.ED 14:09
DX: K74.60 Unspecified cirrhosis of liver (principal); R18.8 Other ascites; J90 Pleural effusion, not elsewhere classified; I10 Essential (primary) hypertension; E78.00 Pure hypercholesterolemia, unspecified; E11.9 Type 2 diabetes mellitus without complications; E03.9 Hypothyroidism, unspecified; E66.9 Obesity, unspecified; Z90.49 Acquired absence of other specified parts of digestive tract; Z90.710 Acquired absence of both cervix and uterus; Z79.899 Other long term (current) drug therapy; Z79.890 Hormone replacement therapy; Z88.2 Allergy status to sulfonamides; Z88.8 Allergy status to other drugs, medicaments and biological substances
CPT/HCPCS: 0240U; 36415; 71046; 80048; 85025; 99283; 99284

== ENCOUNTER 2024-08-31 10:13 | Emergency (ER) | payer MEDICAID, OTHER ==
[2024-08-31 11:17] LABS: BASOPHILS ABSOLUTE AUTO 0.04 K/uL (0.02-0.10); BASOPHILS PERCENT AUTO 1.2 % (0.0-0.5); HEMATOCRIT 33.5 % (37.0-47.0); HEMOGLOBIN 11.3 g/dL (11.5-16.5); LYMPHOCYTES ABSOLUTE AUTO 0.94 K/uL (1.50-4.00); LYMPHOCYTES PERCENT AUTO 28.1 % (20.0-40.0); MEAN CORPUSCULAR HEMOGLOBIN 31.1 pg (27.0-32.0); MEAN CORPUSCULAR HGB CONC 33.7 g/dL (31.0-35.0); MEAN CORPUSCULAR VOLUME 92 fL (76-96); MEAN PLATELET VOLUME 9.8 fL (6.0-10.0); NEUTROPHILS ABSOLUTE AUTO 1.56 K/uL (2.00-7.50); NEUTROPHILS PERCENT AUTO 46.7 % (45.0-70.0); PLATELET COUNT,PLT 114 K/uL (150-500); RED BLOOD CELL COUNT 3.63 M/uL (3.80-5.80); RED CELL DISTRIBUTION WIDTH 15.1 % (11.0-16.0); WHITE BLOOD CELL COUNT,WBC 3.3 K/uL (4.0-11.0)
[2024-08-31 11:35] LABS: A/G RATIO 0.6 (0.8-2.0); ALANINE AMINOTRANSFERASE,ALT 30 U/L (12-78); ALKALINE PHOSPHATASE 140 U/L (46-116); ANION GAP 9.9 mmol/L (5.0-15.0); ASPARTATE AMNIOTRANSFERASE,AST 44 U/L (15-37); BILIRUBIN TOTAL 3.6 mg/dL (0.0-1.0); BLOOD UREA NITROGEN,BUN 6 mg/dL (8-26); BUN/CREATININE RATIO 6.3 (6-25); CARBON DIOXIDE,CO2 27.2 mmol/L (21.0-32.0); CHLORIDE,CL 107 mmol/L (98-107); CREATININE 0.95 mg/dL (0.55-1.02); ESTIMATED GFR 68 mL/min (>60); GLUCOSE RANDOM 142 mg/dL (74-100); POTASSIUM,K 3.1 mmol/L (3.5-5.1); PROTEIN TOTAL,TP 5.4 g/dL (6.4-8.2); SODIUM,NA 141 mmol/L (136-145)
[2024-08-31 11:40] LABS: INFLUENZA A NAA NEGATIVE (NEGATIVE); INFLUENZA B NAA NEGATIVE (NEGATIVE); RESPIRATORY SYNCYTIAL VIR NAA NEGATIVE (NEGATIVE)
[2024-08-31 11:59] LABS: CORONAVIRUS COVID-19 NAA NEGATIVE (NEGATIVE)
== END 2024-08-31 13:07 | disposition home or self-care (01) ==
LOC: LB.ED 10:13
DX: K72.10 Chronic hepatic failure without coma (principal); J90 Pleural effusion, not elsewhere classified; I10 Essential (primary) hypertension; E78.00 Pure hypercholesterolemia, unspecified; E11.9 Type 2 diabetes mellitus without complications; E03.9 Hypothyroidism, unspecified; E66.9 Obesity, unspecified; Z79.899 Other long term (current) drug therapy; Z88.2 Allergy status to sulfonamides; Z88.8 Allergy status to other drugs, medicaments and biological substances; Z68.39 Body mass index [BMI] 39.0-39.9, adult
CPT/HCPCS: 0241U; 36415; 71046; 80053; 85025; 99284; 99285

== ENCOUNTER 2024-10-09 08:56 | Emergency (ER) | payer OTHER ==
[2024-10-09] MEDS ORDERED: oxyCODONE 5 MG Tab ONE (10:00)
[2024-10-09] MEDS: oxyCODONE 5 MG Tab PO ONE ×2 (10:07→10:09)
== END 2024-10-09 10:30 | disposition home or self-care (01) ==
LOC: LB.ED 08:56
DX: M79.651 Pain in right thigh (principal); I10 Essential (primary) hypertension; E78.00 Pure hypercholesterolemia, unspecified; E66.9 Obesity, unspecified; E03.9 Hypothyroidism, unspecified; E11.9 Type 2 diabetes mellitus without complications; Z90.49 Acquired absence of other specified parts of digestive tract
CPT/HCPCS: 99283; A9270

== ENCOUNTER 2024-10-10 13:12 | Observation (INO) | payer OTHER ==
[2024-10-10] MEDS ORDERED: Sodium Chloride 0.9% 10 ML Syringe FLUSH PRN (13:54)
[2024-10-10 14:20] LABS: HEMATOCRIT 21.2 % (37.0-47.0); MEAN CORPUSCULAR HEMOGLOBIN 32.6 pg (27.0-32.0); MEAN PLATELET VOLUME 10.1 fL (6.0-10.0); RED BLOOD CELL COUNT 2.15 M/uL (3.80-5.80); RED CELL DISTRIBUTION WIDTH 18.7 % (11.0-16.0); WHITE BLOOD CELL COUNT,WBC 8.9 K/uL (4.0-11.0)
[2024-10-10 14:38] LABS: A/G RATIO 0.8 (0.8-2.0); ALBUMIN 2.1 g/dL (3.4-5.0); ANION GAP 15.5 mmol/L (5.0-15.0); BILIRUBIN TOTAL 3.5 mg/dL (0.0-1.0); BUN/CREATININE RATIO 5.3 (6-25); CALCIUM 7.8 mg/dL (8.5-10.1); CARBON DIOXIDE,CO2 22.4 mmol/L (21.0-32.0); CREATININE 1.9 mg/dL (0.55-1.02); EST CRCL DRUG DOSING (CG) 25.4 mL/min; MAGNESIUM 1.6 mg/dL (1.8-2.4); POTASSIUM,K 3.9 mmol/L (3.5-5.1); PROTEIN TOTAL,TP 4.6 g/dL (6.4-8.2); TROPONIN I HIGH SENSITIVITY 7.2 pg/ml (<=60.4)
[2024-10-10 14:44] LABS: LACTIC ACID 6.5 mmol/L (0.4-2.0)
[2024-10-10] MEDS: Ondansetron 4 MG Tab.DIS PO ONE (14:50)
[2024-10-10] MEDS: HYDROmorphone 2 MG/ML Syringe IVPUSH ONE (14:55)
[2024-10-10 17:15] LABS: PROTHROMBIN TIME 21.8 sec (9.0-11.5)
[2024-10-10 17:16] LABS: INR 2.2 (1.0-3.5)
[2024-10-10] MEDS: Sodium Chloride 0.9% 1,000 ML IV SCH (17:21)
[2024-10-10] MEDS ORDERED: Melatonin 3 MG Tab PO PRN (18:23)
[2024-10-10] MEDS ORDERED: Cyclobenzaprine 5 MG Tab PO PRN (18:25)
[2024-10-10] MEDS ORDERED: rOPINIRole 1 MG Tab PO PRN (18:57)
[2024-10-10] MEDS ORDERED: Non-Formulary Medication 1 Each (Albuterol Sulfate [Albuterol Sulfate Hfa] 8.5 GM Hfa.Aer. IH PRN (18:57)
[2024-10-10] MEDS ORDERED: Pantoprazole 40 MG Tab.CR PO PRN (18:57)
[2024-10-10] MEDS ORDERED: [UNRECOGNIZED DRUG - OTHER] PO SCH (19:00)
[2024-10-10] MEDS ORDERED: CYANOCOBALAMIN 5000 MCG PO SCH (19:00)
[2024-10-10] MEDS ORDERED: Albuterol 6.7 GM Inhaler INH PRN (19:38)
[2024-10-10] MEDS ORDERED: Cyanocobalamin (Vitamin B12) 1,000 MCG Tab PO SCH ×3 (19:39→19:45)
[2024-10-10] MEDS ORDERED: ZINC SULFATE 50 MG PO SCH ×2 (20:00)
[2024-10-10] MEDS: Rifaximin 550 MG Tab PO SCH (21:00)
[2024-10-10] MEDS: Lactulose Soln 10 GM/15 ML 15 ML UD Cup PO SCH (21:00)
[2024-10-10] MEDS: HYDROmorphone 2 MG/ML Syringe ONE (21:27)
[2024-10-10] MEDS: Zolpidem 5 MG Tab PO PRN (22:57)
[2024-10-11] MEDS ORDERED: Lactulose Soln 10 GM/15 ML 15 ML UD Cup PO SCH (08:00)
[2024-10-11 08:25] LABS: RED BLOOD CELL COUNT 2.8 M/uL (3.80-5.80)
[2024-10-11 08:26] LABS: HEMATOCRIT 27.3 % (37.0-47.0); MEAN CORPUSCULAR HEMOGLOBIN 32.1 pg (27.0-32.0); MEAN PLATELET VOLUME 10.9 fL (6.0-10.0)
[2024-10-11 08:58] LABS: ANION GAP 17.2 mmol/L (5.0-15.0); BUN/CREATININE RATIO 5.3 (6-25); CALCIUM 7.7 mg/dL (8.5-10.1); CARBON DIOXIDE,CO2 18.9 mmol/L (21.0-32.0); CREATININE 2.43 mg/dL (0.55-1.02); EST CRCL DRUG DOSING (CG) 19.86 mL/min; POTASSIUM,K 4.1 mmol/L (3.5-5.1)
[2024-10-11] MEDS: Multivitamin Tab PO SCH (09:23)
[2024-10-11] MEDS: Furosemide 40 MG Tab PO SCH (09:23)
[2024-10-11] MEDS: Lactulose Soln 10 GM/15 ML **OWN MED PO SCH (09:23)
[2024-10-11] MEDS: Spironolactone 100 MG Tab PO SCH (09:23)
[2024-10-11] MEDS: cefTRIAXone 1 GM in Sodium Chloride 0.9% 50 ML IV ONE (10:46)
[2024-10-11] MEDS: Levothyroxine 112 MCG Tab PO SCH (11:16)
[2024-10-11] MEDS: Sodium Chloride 0.9% 1,000 ML IV SCH (11:16)
[2024-10-11] MEDS: Albumin 25% 200 ML IV ONE (12:45)
== END 2024-10-11 13:40 ==
LOC: LB.ED 13:12 → LB.MS 18:15
PROVIDERS: ADMIT Surgery; ATTEND Surgery
DX: D64.9 Anemia, unspecified (principal); I10 Essential (primary) hypertension; E11.9 Type 2 diabetes mellitus without complications; E78.00 Pure hypercholesterolemia, unspecified; E03.9 Hypothyroidism, unspecified; F32.A Depression, unspecified; Z79.84 Long term (current) use of oral hypoglycemic drugs; Z79.890 Hormone replacement therapy; Z79.899 Other long term (current) drug therapy
CPT/HCPCS: 36415; 51702; 70450; 71045; 80048; 80053; 82140; 83605; 83735; 84484; 85027; 85610; 86850; 86900; 86901; 86920; 86922; 87040; 93005; 96361; 96365; 96367; 96375; 99222; 99239; 99285; A0425; A0428; A9270; G0378; J0696; J1171; J7030; P9016; P9047; Q0162; 36430; 96374

== ENCOUNTER 2025-02-24 13:17 | Emergency (ER) | payer OTHER | END 2025-02-24 15:35 | disposition home or self-care (01) | LOC: LB.ED 13:17 | DX: M70.61 Trochanteric bursitis, right hip (principal); I10 Essential (primary) hypertension; E78.00 Pure hypercholesterolemia, unspecified; E11.9 Type 2 diabetes mellitus without complications; E03.9 Hypothyroidism, unspecified; M19.90 Unspecified osteoarthritis, unspecified site; Z86.16 Personal history of COVID-19; Z98.84 Bariatric surgery status; Z90.49 Acquired absence of other specified parts of digestive tract; Z90.710 Acquired absence of both cervix and uterus; Z88.2 Allergy status to sulfonamides; Z88.8 Allergy status to other drugs, medicaments and biological substances; Z79.51 Long term (current) use of inhaled steroids; Z79.82 Long term (current) use of aspirin; Z79.890 Hormone replacement therapy; Z79.899 Other long term (current) drug therapy | CPT/HCPCS: 36415; 85379; 99283; A9270-GY ==

== ENCOUNTER 2025-05-17 15:24 | Emergency (ER) | payer OTHER ==
[2025-05-17] MEDS: Ketorolac 30 MG/ML SDV IM ONE (16:30)
== END 2025-05-17 16:38 | disposition home or self-care (01) ==
LOC: LB.ED 15:24
DX: G44.209 Tension-type headache, unspecified, not intractable (principal); I10 Essential (primary) hypertension; E78.00 Pure hypercholesterolemia, unspecified; E66.9 Obesity, unspecified; E11.9 Type 2 diabetes mellitus without complications; E03.9 Hypothyroidism, unspecified; Z88.2 Allergy status to sulfonamides; Z88.8 Allergy status to other drugs, medicaments and biological substances; Z79.82 Long term (current) use of aspirin; Z79.899 Other long term (current) drug therapy; Z86.16 Personal history of COVID-19; Z90.49 Acquired absence of other specified parts of digestive tract; Z90.710 Acquired absence of both cervix and uterus; Z68.28 Body mass index [BMI] 28.0-28.9, adult
CPT/HCPCS: 96372; 99283; J1885

== ENCOUNTER 2025-05-31 13:04 | Emergency (ER) | payer MEDICAID | END 2025-05-31 14:44 | disposition home or self-care (01) | LOC: LB.ED 13:04 | DX: S70.02XA Contusion of left hip, initial encounter (principal); L89.321 Pressure ulcer of left buttock, stage 1; I10 Essential (primary) hypertension; G89.29 Other chronic pain; E10.9 Type 1 diabetes mellitus without complications; E03.9 Hypothyroidism, unspecified; E66.9 Obesity, unspecified; Z88.2 Allergy status to sulfonamides; Z88.5 Allergy status to narcotic agent; Z79.82 Long term (current) use of aspirin; Z79.899 Other long term (current) drug therapy; Z86.16 Personal history of COVID-19; Z90.49 Acquired absence of other specified parts of digestive tract; Z98.84 Bariatric surgery status; Z79.890 Hormone replacement therapy; Z90.710 Acquired absence of both cervix and uterus; Z68.43 Body mass index [BMI] 50.0-59.9, adult; W01.0XXA Fall on same level from slipping, tripping and stumbling without subsequent striking against object, initial encounter; Y92.000 Kitchen of unspecified non-institutional (private) residence as the place of occurrence of the external cause | CPT/HCPCS: 73502-LT; 99283; 99284 ==

== ENCOUNTER 2025-06-05 11:49 | Emergency (ER) | payer MEDICAID ==
[2025-06-05 13:15] LABS: BASOPHILS ABSOLUTE AUTO 0.01 K/uL (0.02-0.10); BASOPHILS PERCENT AUTO 0.2 % (0.0-0.5); EOSINOPHILS ABSOLUTE AUTO 0.07 K/uL (0.04-0.40); EOSINOPHILS PERCENT AUTO 1.7 % (1.0-5.0); LYMPHOCYTES ABSOLUTE AUTO 0.84 K/uL (1.50-4.00); LYMPHOCYTES PERCENT AUTO 20.0 % (20.0-40.0); MEAN PLATELET VOLUME 9.3 fL (6.0-10.0); MONOCYTES ABSOLUTE AUTO 0.34 K/uL (0.20-0.80); MONOCYTES PERCENT AUTO 8.1 % (3.0-10.0); NEUTROPHILS ABSOLUTE AUTO 2.93 K/uL (2.00-7.50); NEUTROPHILS PERCENT AUTO 70.0 % (45.0-70.0); PLATELET COUNT,PLT 187 K/uL (150-500); RED BLOOD CELL COUNT 3.35 M/uL (3.80-5.80); RED CELL DISTRIBUTION WIDTH 13.0 % (11.0-16.0); WHITE BLOOD CELL COUNT,WBC 4.2 K/uL (4.0-11.0)
[2025-06-05 13:22] LABS: CORONAVIRUS COVID-19 NAA NEGATIVE (NEGATIVE); INFLUENZA A NAA NEGATIVE (NEGATIVE); INFLUENZA B NAA NEGATIVE (NEGATIVE)
[2025-06-05 13:35] LABS: A/G RATIO 1.0 (0.8-2.0); ALANINE AMINOTRANSFERASE,ALT 32.0 U/L (12-78); ASPARTATE AMNIOTRANSFERASE,AST 24.0 U/L (15-37); BILIRUBIN TOTAL 0.4 mg/dL (0.0-1.0); BLOOD UREA NITROGEN,BUN 16.0 mg/dL (8-26); CARBON DIOXIDE,CO2 27.7 mmol/L (21.0-32.0); CHLORIDE,CL 110.0 mmol/L (98-107); CREATININE 1.25 mg/dL (0.55-1.02); EST CRCL DRUG DOSING (CG) 38.6 mL/min; ESTIMATED GFR 49.0 mL/min (>60); GLUCOSE RANDOM 108.0 mg/dL (74-100); POTASSIUM,K 4.3 mmol/L (3.5-5.1); PROTEIN TOTAL,TP 4.9 g/dL (6.4-8.2); SODIUM,NA 142.0 mmol/L (136-145)
== END 2025-06-05 13:54 | disposition home or self-care (01) ==
LOC: LB.ED 11:49
DX: B34.9 Viral infection, unspecified (principal); I10 Essential (primary) hypertension; E11.9 Type 2 diabetes mellitus without complications; E66.9 Obesity, unspecified; E03.9 Hypothyroidism, unspecified; N17.9 Acute kidney failure, unspecified; M19.90 Unspecified osteoarthritis, unspecified site; Z79.899 Other long term (current) drug therapy; Z79.890 Hormone replacement therapy; Z88.2 Allergy status to sulfonamides; Z88.8 Allergy status to other drugs, medicaments and biological substances; Z86.16 Personal history of COVID-19; Z90.49 Acquired absence of other specified parts of digestive tract; Z90.710 Acquired absence of both cervix and uterus; Z68.30 Body mass index [BMI] 30.0-30.9, adult
CPT/HCPCS: 36415; 80053; 85025; 87636; 99283

== ENCOUNTER 2025-07-01 17:20 | Emergency (ER) | payer OTHER ==
[2025-07-01] MEDS ORDERED: Sodium Chloride 0.9% 10 ML Syringe FLUSH PRN (17:51)
[2025-07-01 18:12] LABS: BASOPHILS ABSOLUTE AUTO 0.01 K/uL (0.02-0.10); BASOPHILS PERCENT AUTO 0.3 % (0.0-0.5); EOSINOPHILS ABSOLUTE AUTO 0.08 K/uL (0.04-0.40); EOSINOPHILS PERCENT AUTO 2.1 % (1.0-5.0); LYMPHOCYTES ABSOLUTE AUTO 0.98 K/uL (1.50-4.00); LYMPHOCYTES PERCENT AUTO 25.5 % (20.0-40.0); MEAN PLATELET VOLUME 10.1 fL (6.0-10.0); MONOCYTES ABSOLUTE AUTO 0.40 K/uL (0.20-0.80); MONOCYTES PERCENT AUTO 10.4 % (3.0-10.0); NEUTROPHILS ABSOLUTE AUTO 2.37 K/uL (2.00-7.50); NEUTROPHILS PERCENT AUTO 61.7 % (45.0-70.0); PLATELET COUNT,PLT 221 K/uL (150-500); RED BLOOD CELL COUNT 3.58 M/uL (3.80-5.80); RED CELL DISTRIBUTION WIDTH 12.8 % (11.0-16.0); WHITE BLOOD CELL COUNT,WBC 3.8 K/uL (4.0-11.0)
[2025-07-01 18:34] LABS: A/G RATIO 0.8 (0.8-2.0); ALANINE AMINOTRANSFERASE,ALT 129.0 U/L (12-78); ASPARTATE AMNIOTRANSFERASE,AST 32.0 U/L (15-37); BILIRUBIN TOTAL 0.3 mg/dL (0.0-1.0); BLOOD UREA NITROGEN,BUN 13.0 mg/dL (8-26); CARBON DIOXIDE,CO2 25.5 mmol/L (21.0-32.0); CHLORIDE,CL 113.0 mmol/L (98-107); CREATININE 1.06 mg/dL (0.55-1.02); EST CRCL DRUG DOSING (CG) 45.52 mL/min; ESTIMATED GFR 59.0 mL/min (>60); GLUCOSE RANDOM 125.0 mg/dL (74-100); POTASSIUM,K 4.2 mmol/L (3.5-5.1); PROTEIN TOTAL,TP 5.5 g/dL (6.4-8.2); SODIUM,NA 145.0 mmol/L (136-145)
[2025-07-01 18:39] LABS: PHOSPHORUS 3.2 mg/dL (2.5-4.9); TROPONIN I HIGH SENSITIVITY 5.8 pg/ml (<=60.4)
[2025-07-01] MEDS: Magnesium Sulfat/D5W 1GM/100ML 1 GM in Premix Bag 1 BAG IV ONE (19:02)
== END 2025-07-01 20:27 | disposition home or self-care (01) ==
LOC: LB.ED 17:20
DX: A04.72 Enterocolitis due to Clostridium difficile, not specified as recurrent (principal); I10 Essential (primary) hypertension; E78.00 Pure hypercholesterolemia, unspecified; E11.9 Type 2 diabetes mellitus without complications; E03.9 Hypothyroidism, unspecified; Z90.49 Acquired absence of other specified parts of digestive tract; Z88.8 Allergy status to other drugs, medicaments and biological substances; Z88.2 Allergy status to sulfonamides; Z79.82 Long term (current) use of aspirin; Z79.899 Other long term (current) drug therapy
CPT/HCPCS: 36415; 70450; 80053; 83605; 83735; 84100; 84484; 85025; 86140; 87493; 93005; 96361; 96365; 99284; 99284-25; J3475; J7030